=== PATIENT | female | born 1950 | race Caucasian/White ===

== ENCOUNTER → 2016-04-17 | Outpatient (CLI) | payer MEDICARE, BC ==
[2016-04-17 11:39] LABS: CHLORIDE,CL 109 mmol/L (98-110); SODIUM,NA 141 mmol/L (136-146)
== END | disposition home or self-care (01) ==
LOC: MW.CHIM 11:04
PROVIDERS: ATTEND Internal Medicine
DX: R42 Dizziness and giddiness (principal); F32.9 Major depressive disorder, single episode, unspecified; M85.80 Other specified disorders of bone density and structure, unspecified site; M19.049 Primary osteoarthritis, unspecified hand; E66.9 Obesity, unspecified
CPT/HCPCS: 36415; 80053; 85025; 99214

== ENCOUNTER 2017-03-23 17:05 | Observation (INO) | payer MEDICARE, BC ==
[2017-03-23] MEDS ORDERED: Sodium Chloride 0.9% 10 ML Syringe FLUSH PRN ×2 (17:06→19:34)
[2017-03-23] MEDS ORDERED: Sodium Chloride 0.9% 2.5 ML Syringe FLUSH PRN ×2 (17:06→19:34)
[2017-03-23] MEDS ORDERED: Aspirin 81 MG Tab.Chew PO ONE (17:24)
--- NOTE | 2017-03-23 17:48 | EDM.PDOC ---
ED HPI GENERAL MEDICAL PROBLEM - General Chief Complaint: Neuro Symptoms/Deficits Stated Complaint: CONFUSION Time Seen by Provider: 03/23/17 17:08 Source of Information: Reports: Patient History Limitations: Reports: No Limitations - History of Present Illness INITIAL COMMENTS - FREE TEXT/NARRATIVE: History of present illness: []Patient was last seen normal at 2:45 this afternoon. Her son returned from an errand and when he returned she was speaking and very confused about ice cream. Her son noted that this is very abnormal for her. Patient also noted that after driving her here walking from the car to the ER she was not moving her left side very much. Patient does have a history of low blood pressure but has never had a stroke in the past. 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 She was unable to answer the question, what is your name? On return from CT patient was speaking very clearly answering some questions with more clarity however still confused about the date and place. Review of systems: As per history of present illness and below otherwise all systems reviewed and negative. Past medical history: As per history of present illness and as reviewed below otherwise noncontributory. Surgical history: As per history of present illness and as reviewed below otherwise noncontributory. Social history: No reported history of drug or alcohol abuse. Family history: As per history of present illness and as reviewed below otherwise noncontributory. Physical exam: General: Well developed, well nourished in NAD HEENT: Atraumatic, normocephalic, pupils reactive, negative for conjunctival pallor or scleral icterus, mucous membranes moist, throat clear, neck supple, nontender, trachea midline. Lungs: Clear to auscultation, breath sounds equal bilaterally, chest nontender. Heart: S1S2, regular, negative for clicks, rubs, or JVD. Abdomen: Soft, nondistended, nontender. Negative for masses or hepatosplenomegaly. Negative for costovertebral tenderness. Pelvis: Stable nontender. Genitourinary: Deferred. Rectal: Deferred. Extremities: Atraumatic, negative for cords or calf pain. Neurovascular unremarkable. Neuro: Awake, alert, oriented. Cranial nerves II through XII unremarkable. Cerebellum unremarkable. Motor and sensory unremarkable throughout. Exam nonfocal. Diagnostics: []CT head negative, Therapeutics: []Aspirin given Impression: []CVA Plan: []Admit for further workup Definitive disposition and diagnosis as appropriate pending reevaluation and review of above. - Related Data Allergies Allergy/AdvReac Type Severity Reaction Status Date / Time No Known Allergies Allergy Verified 11/25/13 08:44 Home Meds: Home Meds DULoxetine [Cymbalta] 30 mg PO DAILY 03/23/17 [History] Omeprazole 20 mg PO DAILY 03/23/17 [History] ED ROS GENERAL - Review of Systems Review Of Systems: See Below (The history of present illness) ED EXAM, NEURO - Physical Exam Exam: See Below (See history of present illness) Course - Vital Signs Last Recorded V/S: Last Vital Signs Temp 97.7 F 03/23/17 17:46 Pulse 101 H 03/23/17 18:21 Resp 18 03/23/17 18:21 BP 148/74 H 03/23/17 18:21 Pulse Ox 91 L 03/23/17 18:21 - Orders/Labs/Meds Orders: Active Orders 24 hr Category Date Time Status Assess Neurological Status [RC] ASDIRECTED Care 03/23/17 17:06 Active Bedrest [RC] ASDIRECTED Care 03/23/17 17:06 Active Blood Glucose Check, Bedside [RC] STAT Care 03/23/17 17:06 Active Cardiac Monitoring [RC] . DIRECTED Care 03/23/17 17:06 Active EKG Documentation Completion [RC] STAT Care 03/23/17 17:06 Active Height and Weight [RC] UPON Care 03/23/17 17:06 Active Initiate Acute Stroke Protocol [RC] STAT Care 03/23/17 17:06 Active NIH Stroke Scale [RC] ASDIRECTED Care 03/23/17 17:06 Active Nursing Bedside Swallow Screen [RC] ASDIRECTED Care 03/23/17 17:06 Active Oxygen Therapy [RC] ASDIRECTED Care 03/23/17 17:06 Active Stroke Education, General [RC] Click to Edit Care 03/23/17 17:06 Active Vital Signs [RC] Q15M Care 03/23/17 17:06 Active Head wo Cont [CT] Stat Exams 03/23/17 17:06 Taken Sodium Chloride 0.9% [Saline Flush] Med 03/23/17 17:06 Active 10 ml FLUSH ASDIRECTED PRN Sodium Chloride 0.9% [Saline Flush] Med 03/23/17 17:06 Active 2.5 ml FLUSH ASDIRECTED PRN Peripheral IV Insertion Adult [OM.PC] Stat Ot 03/23/17 17:06 Ordered Peripheral IV Insertion Adult [OM.PC] Stat Ot 03/23/17 17:06 Ordered Medication Orders Sodium Chloride (Saline Flush) 10 ml FLUSH ASDIRECTED PRN PRN Reason: Keep Vein Open Sodium Chloride (Saline Flush) 2.5 ml FLUSH ASDIRECTED PRN PRN Reason: Keep Vein Open Labs: Laboratory Tests 03/23/17 03/23/17 03/23/17 Range/Units 17:20 17:20 17:20 WBC 9.15 (4.0-11.0) K/uL RBC 4.46 (4.30-5.90) M/uL Hgb 13.4 (12.0-16.0) g/dL Hct 39.8 (36.0-46.0) % MCV 89.2 (80.0-98.0) fL MCH 30.0 (27.0-32.0) pg MCHC 33.7 (31.0-37.0) g/dL RDW Std Deviation 45.1 (28.0-62.0) fl RDW Coeff of Uzma 14 (11.0-15.0) % Plt Count 219 (150-400) K/uL MPV 10.10 (7.40-12.00) fL Neut % (Auto) 59.9 (48.0-80.0) % Lymph % (Auto) 32.6 (16.0-40.0) % [place] % (Auto) 7.1 (0.0-15.0) % Eos % (Auto) 0.2 (0.0-7.0) % Baso % (Auto) 0.2 (0.0-1.5) % Neut # (Auto) 5.5 (1.4-5.7) K/uL Lymph # (Auto) 3.0 H (0.6-2.4) K/uL [place] # (Auto) 0.7 (0.0-0.8) K/uL Eos # (Auto) 0.0 (0.0-0.7) K/uL Baso # (Auto) 0.0 (0.0-0.1) K/uL Nucleated RBC % 0.0 /100WBC Nucleated RBCs # 0 K/uL INR 0.98 (0.86-1.11) APTT 28.5 (18.6-31.3) SEC Sodium 141 (136-146) mmol/L Potassium 3.9 (3.5-5.1) mmol/L Chloride 108 (98-110) mmol/L Carbon Dioxide 22 (21-31) mmol/L BUN 13 (6.0-23.0) mg/dL Creatinine 0.8 (0.6-1.5) mg/dL Est Cr Clr Drug Dosing TNP Estimated GFR (MDRD) > 60.0 ml/min Glucose 107 (60-110) mg/dL Calcium 9.3 (8.8-10.8) mg/dL Total Bilirubin 0.9 (0.1-1.5) mg/dL AST 36 (5-40) IU/L ALT 57 H (8-54) IU/L Alkaline Phosphatase 80 (40-150) Troponin I < 0.10 (0.0-0.29) NG/ML Total Protein 7.2 (6.0-8.0) g/dL Albumin 4.1 (3.4-4.8) g/dL Globulin 3.1 (2.0-3.5) g/dL Albumin/Globulin Ratio 1.3 (1.3-2.8) TSH 3rd Generation 1.78 (0.47-5.0) uIU/mL Meds: Medications Generic Name Dose Route Start Last Admin Trade Name Freq PRN Reason Stop Dose Admin Sodium Chloride 10 ml 03/23/17 17:06 Saline Flush FLUSH ASDIRECTED PRN Keep Vein Open Sodium Chloride 2.5 ml 03/23/17 17:06 Saline Flush FLUSH ASDIRECTED PRN Keep Vein Open Discontinued Medications Generic Name Dose Route Start Last Admin Trade Name Freq PRN Reason Stop Dose Admin Aspirin 324 mg 03/23/17 17:24 03/23/17 17:31 Aspirin PO 03/23/17 17:25 324 mg ONETIME ONE Administration Departure - Departure Time of Disposition: 18:46 Disposition: Admitted As Inpatient 65 Condition: Fair Clinical Impression: CVA (cerebral vascular accident) Qualifiers: Laterality of affected vessel: unspecified - Discharge Information Referrals: Rafi Marshall MD [Primary Care Provider] - Forms: ED Department Discharge - My Orders Last 24 Hours: My Active Orders 03/23/17 17:06 Assess Neurological Status [RC] ASDIRECTED Bedrest [RC] ASDIRECTED Blood Glucose Check, Bedside [RC] STAT Cardiac Monitoring [RC] . DIRECTED EKG Documentation Completion [RC] STAT Height and Weight [RC] UPON Initiate Acute Stroke Protocol [RC] STAT NIH Stroke Scale [RC] ASDIRECTED Nursing Bedside Swallow Screen [RC] ASDIRECTED Oxygen Therapy [RC] ASDIRECTED Stroke Education, General [RC] Click to Edit Vital Signs [RC] Q15M Head wo Cont [CT] Stat Sodium Chloride 0.9% [Saline Flush] 10 ml FLUSH ASDIRECTED PRN Sodium Chloride 0.9% [Saline Flush] 2.5 ml FLUSH ASDIRECTED PRN Peripheral IV Insertion Adult [OM.PC] Stat Peripheral IV Insertion Adult [OM.PC] Stat - Assessment/Plan Last 24 Hours: My Active Orders 03/23/17 17:06 Assess Neurological Status [RC] ASDIRECTED Bedrest [RC] ASDIRECTED Blood Glucose Check, Bedside [RC] STAT Cardiac Monitoring [RC] . DIRECTED EKG Documentation Completion [RC] STAT Height and Weight [RC] UPON Initiate Acute Stroke Protocol [RC] STAT NIH Stroke Scale [RC] ASDIRECTED Nursing Bedside Swallow Screen [RC] ASDIRECTED Oxygen Therapy [RC] ASDIRECTED Stroke Education, General [RC] Click to Edit Vital Signs [RC] Q15M Head wo Cont [CT] Stat Sodium Chloride 0.9% [Saline Flush] 10 ml FLUSH ASDIRECTED PRN Sodium Chloride 0.9% [Saline Flush] 2.5 ml FLUSH ASDIRECTED PRN Peripheral IV Insertion Adult [OM.PC] Stat Peripheral IV Insertion Adult [OM.PC] Stat
[2017-03-23 17:51] LABS: CHLORIDE,CL 108 mmol/L (98-110); SODIUM,NA 141 mmol/L (136-146)
--- NOTE | 2017-03-23 19:24 | PCM.HP ---
H&P History of Present Illness - General Date of Service: 03/23/17 Admit Problem/Dx: Admission Diagnosis/Problem Admission Diagnosis/Problem TIA, Transient ischemic attack Source of Information: Patient, EMS, Family History Limitations: Reports: Altered Mental Status - History of Present Illness Initial Comments - Free Text/Narative: 66-year-old female brought to emergency room by son with chief complaint of altered mental status with past medical history of depression, anxiety, and osteoarthritis. 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 He awoke at around 11 AM in the morning and mother was acting her normal self. At approximately 2;45 PM he left to take his kids to hockey and when returning approximately 2 hours later he found his mother speaking "gibberish". He states that she was saying clear words but they made no sense. This was unusual so he and his brother who came decided to take her to the emergency room. They also note that she did need help getting to the car and appeared to have some left-sided weakness but they were not clear secondary to her osteoarthritis. They reported that she has a history of low blood pressure but no significant cardiopulmonary disease. She does have parents who both had myocardial infarctions. 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 On reexamination after CT scan the facial droop had resolved. In emergency department she was unable to answer what her name was as per ER. On questioning the patient she is disoriented to time and recent events. She is oriented to place and person. She is speaking clearly verbally but when asked if she is having problems finding words she shakes her head and says yes. On examination cranial nerves 2 through 12 are intact and strength is equal bilaterally. She does have problems following commands. She does seem to have some left visual field deficits but her son states that she cannot see well without her glasses which are not available. Sons state that she was not having any chest pain, headache, palpitations, shortness of breath, or witnessed syncopal episodes. In the emergency department CBC, CMP, troponin, TSH were unremarkable. CT of the head showed no acute intracranial disease. She was given 324 mg by mouth aspirin and ECG showed sinus tachycardia with a left posterior fascicular block and borderline QT interval prolongation. No signs acute ischemia. Patient will be admitted for altered mental status/TIA. Onset of Symptoms: Reports: Today - Related Data Allergies/Adverse Reactions: Allergies Allergy/AdvReac Type Severity Reaction Status Date / Time No Known Allergies Allergy Verified 11/25/13 08:44 Home Medications: Home Meds DULoxetine [Cymbalta] 30 mg PO DAILY 03/23/17 [History] Omeprazole 20 mg PO DAILY 03/23/17 [History] Past Medical History Other HEENT History: unable to assess as pt confused, family unable to give information Other Cardiovascular History: patient confused, family states none as far as they know Other Respiratory History: pt confused, family states done Other Gastrointestinal History: pt confused, Other Genitourinary History: unknown, pt confused BOX ICER History: Reports: , Other (See Below) Other OB/BYN History: hysterectomy Other Musculoskeletal History: confused Other Neuro History: unknown Psychiatric History: Reports: Other (See Below) Other Psychiatric History: takes cymbalta, unsure why Other Endocrine/Metabolic History: unknown Other Hematologic History: unknown Other Immunologic History: family states no Other Oncologic History: unknown Other Dermatologic History: unknown - Infectious Disease History Other Infectious Disease History: unknown Social & Family History - Family History Family Medical History: Unobtainable - Tobacco Use Smoking Status *Q: Never Smoker Second Hand Smoke Exposure: No - Caffeine Use Caffeine Use: Reports: Coffee - Recreational Drug Use Recreational Drug Use: No H&P Review of Systems - Review of Systems: Review Of Systems: See Below General: Reports: Weakness. Denies: Fever, Chills, Malaise HEENT: Denies: Headaches, Sore Throat Pulmonary: Denies: Shortness of Breath, Pleuritic Chest Pain, Cough Cardiovascular: Denies: Chest Pain Gastrointestinal: Denies: Abdominal Pain, Diarrhea, Nausea, Vomiting Genitourinary: Denies: Dysuria Musculoskeletal: Denies: Neck Pain, Leg Pain Skin: Denies: Cyanosis Psychiatric: Reports: Confusion. Denies: Hallucinations Neurological: Reports: Confusion, Trouble Speaking, Difficulty Walking, Gait Disturbance. Denies: Dizziness, Headache, Numbness, Paresthesia, Seizure, Syncope, Tingling, Tremors, Weakness, Change in Speech Hematologic/Lymphatic: Denies: Anemia Exam - Exam Exam: See Below - Vital Signs Vital Signs: Last Vital Signs Temp 97.7 F 03/23/17 17:46 Pulse 98 03/23/17 19:07 Resp 18 03/23/17 19:07 BP 134/69 03/23/17 19:07 Pulse Ox 94 L 03/23/17 19:07 Weight: 86.183 kg - Exam Quality Assessment: DVT Prophylaxis General: Alert, Cooperative HEENT: Conjunctiva Clear, EACs Clear, EOMI, Hearing Intact, Mucosa Moist & [place] , Nares Patent, Normal Nasal Septum, Posterior Pharynx Clear, PERRLA Neck: Supple, Trachea Midline, 2 Lungs: Clear to Auscultation, Normal Respiratory Effort Cardiovascular: Regular Rate, Regular Rhythm, Normal S1, Normal S2 GI/Abdominal Exam: Normal Bowel Sounds, Soft, Non-Tender, No Organomegaly, No Distention Back Exam: Normal Inspection, Full Range of Motion, NT Extremities: Normal Inspection, Normal Range of Motion, Non-Tender, No Pedal Edema, Normal Capillary Refill. No: Jr's Sign Peripheral Pulses: 2+: Radial (L), Radial (R), Posterior Tibial (L), Posterior Tibial (R), Dorsalis Pedis (L), Dorsalis Pedis (R) Skin: Warm, Dry, Intact Neurological: Cranial Nerves Intact, Reflexes Equal Bilateral, Strength Equal Bilateral, Normal Tone, Sensation Intact, Babinski. No: Focal Deficit Neuro Extensive - Mental Status: Alert, Normal Mood/Affect, Disorientation to Place, Disorientation to Time, Memory Loss-Recent Events, Slow Response to Commands. No: Disorientation to Person, Nl Response to Commands Neuro Extensive - Motor, Sensory, Reflexes: CN II-XII Intact, Normal Gait, Normal Reflexes, Expressive Aphasia. No: Tongue Deviation (L), Tongue Deviation (R), Facial palsy (L), Facial Palsy (R), Facial Palsy w Forehead, Facial Palsy wo Forehead, Hemeplagia (R), Hemeplagia (L), Pronator Drift (R), Pronator Drift (L) Psychiatric: Alert, Normal Affect, Normal Mood - Patient Data Lab Results Last 24 hrs: Laboratory Results - last 24 hr 03/23/17 03/23/17 03/23/17 Range/Units 17:20 17:20 17:20 WBC 9.15 (4.0-11.0) K/uL RBC 4.46 (4.30-5.90) M/uL Hgb 13.4 (12.0-16.0) g/dL Hct 39.8 (36.0-46.0) % MCV 89.2 (80.0-98.0) fL MCH 30.0 (27.0-32.0) pg MCHC 33.7 (31.0-37.0) g/dL RDW Std Deviation 45.1 (28.0-62.0) fl RDW Coeff of Uzma 14 (11.0-15.0) % Plt Count 219 (150-400) K/uL MPV 10.10 (7.40-12.00) fL Neut % (Auto) 59.9 (48.0-80.0) % Lymph % (Auto) 32.6 (16.0-40.0) % [place] % (Auto) 7.1 (0.0-15.0) % Eos % (Auto) 0.2 (0.0-7.0) % Baso % (Auto) 0.2 (0.0-1.5) % Neut # (Auto) 5.5 (1.4-5.7) K/uL Lymph # (Auto) 3.0 H (0.6-2.4) K/uL [place] # (Auto) 0.7 (0.0-0.8) K/uL Eos # (Auto) 0.0 (0.0-0.7) K/uL Baso # (Auto) 0.0 (0.0-0.1) K/uL Nucleated RBC % 0.0 /100WBC Nucleated RBCs # 0 K/uL INR 0.98 (0.86-1.11) APTT 28.5 (18.6-31.3) SEC Sodium 141 (136-146) mmol/L Potassium 3.9 (3.5-5.1) mmol/L Chloride 108 (98-110) mmol/L Carbon Dioxide 22 (21-31) mmol/L BUN 13 (6.0-23.0) mg/dL Creatinine 0.8 (0.6-1.5) mg/dL Est Cr Clr Drug Dosing TNP Estimated GFR (MDRD) > 60.0 ml/min Glucose 107 (60-110) mg/dL Calcium 9.3 (8.8-10.8) mg/dL Total Bilirubin 0.9 (0.1-1.5) mg/dL AST 36 (5-40) IU/L ALT 57 H (8-54) IU/L Alkaline Phosphatase 80 (40-150) Troponin I < 0.10 (0.0-0.29) NG/ML Total Protein 7.2 (6.0-8.0) g/dL Albumin 4.1 (3.4-4.8) g/dL Globulin 3.1 (2.0-3.5) g/dL Albumin/Globulin Ratio 1.3 (1.3-2.8) TSH 3rd Generation 1.78 (0.47-5.0) uIU/mL Result Diagrams: 03/23/17 17:20 03/23/17 17:20 *Q Meaningful Use (ADM) - VTE *Q VTE Criteria *Q: - Stroke *Q Stroke Criteria *Q: - AMI *Q AMI Criteria *Q: - Problem List (1) Altered mental status SNOMED Code(s): 767508332 ICD Code: R41.82 - ALTERED MENTAL STATUS, UNSPECIFIED Status: Acute Current Visit: Yes (2) TIA (transient ischemic attack) SNOMED Code(s): 690765532 ICD Code: G45.9 - TRANSIENT CEREBRAL ISCHEMIC ATTACK, UNSPECIFIED Status: Acute Current Visit: Yes Problem List Initiated/Reviewed/Updated: Yes Orders Last 24hrs: Active Orders 24 hr Category Date Time Status Patient Status [ADT] Stat ADT 03/23/17 19:13 Active Assess Neurological Status [RC] ASDIRECTED Care 03/23/17 17:06 Active Bedrest [RC] ASDIRECTED Care 03/23/17 17:06 Active Blood Glucose Check, Bedside [RC] STAT Care 03/23/17 17:06 Active Cardiac Monitoring [RC] . DIRECTED Care 03/23/17 17:06 Active EKG Documentation Completion [RC] STAT Care 03/23/17 17:06 Active Height and Weight [RC] UPON Care 03/23/17 17:06 Active Initiate Acute Stroke Protocol [RC] STAT Care 03/23/17 17:06 Active NIH Stroke Scale [RC] ASDIRECTED Care 03/23/17 17:06 Active Nursing Bedside Swallow Screen [RC] ASDIRECTED Care 03/23/17 17:06 Active Oxygen Therapy [RC] ASDIRECTED Care 03/23/17 17:06 Active Stroke Education, General [RC] Click to Edit Care 03/23/17 17:06 Active Vital Signs [RC] Q15M Care 03/23/17 17:06 Active Head wo Cont [CT] Stat Exams 03/23/17 17:06 Taken Sodium Chloride 0.9% [Saline Flush] Med 03/23/17 17:06 Active 10 ml FLUSH ASDIRECTED PRN Sodium Chloride 0.9% [Saline Flush] Med 03/23/17 17:06 Active 2.5 ml FLUSH ASDIRECTED PRN Peripheral IV Insertion Adult [OM.PC] Stat Oth 03/23/17 17:06 Ordered Peripheral IV Insertion Adult [OM.PC] Stat Oth 03/23/17 17:06 Ordered Medication Orders Sodium Chloride (Saline Flush) 10 ml FLUSH ASDIRECTED PRN PRN Reason: Keep Vein Open Sodium Chloride (Saline Flush) 2.5 ml FLUSH ASDIRECTED PRN PRN Reason: Keep Vein Open Assessment/Plan Comment:: 66 yo female admitted 03/23/17 for altered mental status/TIA with pmh of anxiety, depression, osteoarthritis, and chronic back pain. Altered Mental Status/TIA: No previous cardiopulmonary disease but strong family history. Will do TIA work-up: MRI brain w/wo contrast, MRA head and neck , echocardiogram, fasting lipid panel and place on telemetry. She did recieve 324mg asprin in ED. Will plan to possible start 81 mg aspirin and plavix after neuro consult tomorrow am. Consult neurology. Borderline qtc: Refrain from using zofran for nausea as may prolong qtc. Dispo: 1-2 days.
[2017-03-23] MEDS ORDERED: Acetaminophen 325 MG Tab PO PRN (19:34)
[2017-03-23] MEDS ORDERED: oxyCODONE 5 MG Tab PO PRN (19:34)
[2017-03-23] MEDS ORDERED: Promethazine 25 MG Tab PO PRN (19:34)
[2017-03-23] MEDS ORDERED: Morphine 10 MG/ML Syringe IVPUSH PRN (19:34)
[2017-03-23] MEDS ORDERED: Clopidogrel 75 MG Tab PO ONE (19:48)
[2017-03-24] MEDS ORDERED: Morphine 2 MG/ML Syringe IVPUSH PRN (07:05)
[2017-03-24 07:10] LABS: CHLORIDE,CL 107 mmol/L (98-110); SODIUM,NA 138 mmol/L (136-146)
[2017-03-24] MEDS ORDERED: Potassium Chloride 20 MEQ Tab.ER PO ONE (08:55)
[2017-03-24] MEDS ORDERED: Clopidogrel 75 MG Tab PO SCH (09:00)
[2017-03-24] MEDS: Gadobenate Dimeglumine 529 MG/ML 20 ML SDV IVPUSH STA ×2 (09:23→12:11)
--- NOTE | 2017-03-24 10:16 | MR ---
EXAMINATION: MR of the head without contrast. TECHNIQUE: Multiplanar and multisequence imaging of the head without intravenous contrast. Diffusion weighted sequences were performed. HISTORY: TIA. FINDINGS: The cerebral hemispheres and deep nuclei are without hemorrhage, mass, edema or atrophy. No evidence for restricted diffusion. There is a small area of susceptibility artifact within the left occipital region, likely representing a tiny cavernous hemangioma. No extraaxial collections or hemorrhage. The ventricular system is of normal size and configuration without hydrocephalus. The brainstem and cerebellum are without hemorrhage, mass, edema, gliosis or atrophy. The carotid and basilar artery flow voids are intact. The otomastoid airspaces are clear. No internal affairs investigator al auditory canal or cerebellopontine angle masses. Normal paranasal sinus thickening. Craniocervical junction is unremarkable without Chiari malformation. IMPRESSION: 1. No acute intracranial abnormality identified.
[2017-03-24] MEDS ORDERED: ALPRAZolam 0.25 MG Tab PO ONE (10:28)
[2017-03-24] MEDS: Heparin Sodium 5,000 Units/ML Vial SUBCUT SCH ×2 (10:40→17:04)
[2017-03-24] MEDS: DULoxetine 30 MG Cap PO SCH (10:40)
[2017-03-24] MEDS: Aspirin 81 MG Tab.Chew PO SCH (10:41)
--- NOTE | 2017-03-24 12:24 | PCM.PN ---
- General Info Date of Service: 03/24/17 Admission Dx/Problem (Free Text): Admission Diagnosis/Problem Admission Diagnosis/Problem TIA, Transient ischemic attack Subjective Update: Continues to have some word finding concerns and some confusion per sons, who are both at the bedside. Dina doesn't talk much, but does attempt and end sentences and forgets what she was saying. Denies pain anywhere. No weakness to either side of her body, no focal deficits noted. No chest pain or SOB. Functional Status: Reports: Pain Controlled, Tolerating Diet, Ambulating, Urinating - Review of Systems General: Reports: No Symptoms. Denies: Fever HEENT: Reports: No Symptoms. Denies: Headaches, Sore Throat, Rhinitis Pulmonary: Reports: No Symptoms. Denies: Shortness of Breath, Cough, Sputum Cardiovascular: Reports: No Symptoms. Denies: Chest Pain, Palpitations, Lightheadedness Gastrointestinal: Reports: No Symptoms. Denies: Abdominal Pain, Nausea, Vomiting Neurological: Reports: Confusion, Trouble Speaking. Denies: Headache, Numbness , Tingling, Tremors, Difficulty Walking, Weakness Psychiatric: Reports: Confusion - Patient Data Vitals - Most Recent: Last Vital Signs Temp 96 F 03/24/17 08:00 Pulse 98 03/24/17 08:00 Resp 16 03/24/17 08:00 BP 109/70 03/24/17 08:00 Pulse Ox 94 L 03/24/17 08:00 Weight - Most Recent: 82.327 kg I&O - Last 24 Hours: Intake & Output 03/23/17 03/24/17 03/24/17 22:59 06:59 14:59 Intake Total 50 Output Total 300 Balance -250 Lab Results Last 24 Hours: Laboratory Results - last 24 hr 03/24/17 03/24/17 Range/Units 05:30 05:30 WBC 7.18 (4.0-11.0) K/uL RBC 4.38 (4.30-5.90) M/uL Hgb 12.9 (12.0-16.0) g/dL Hct 39.2 (36.0-46.0) % MCV 89.5 (80.0-98.0) fL MCH 29.5 (27.0-32.0) pg MCHC 32.9 (31.0-37.0) g/dL RDW Std Deviation 45.3 (28.0-62.0) fl RDW Coeff of Uzma 14 (11.0-15.0) % Plt Count 213 (150-400) K/uL MPV 10.40 (7.40-12.00) fL Neut % (Auto) 51.2 (48.0-80.0) % Lymph % (Auto) 39.8 (16.0-40.0) % [place] % (Auto) 8.5 (0.0-15.0) % Eos % (Auto) 0.4 (0.0-7.0) % Baso % (Auto) 0.1 (0.0-1.5) % Neut # (Auto) 3.7 (1.4-5.7) K/uL Lymph # (Auto) 2.9 H (0.6-2.4) K/uL [place] # (Auto) 0.6 (0.0-0.8) K/uL Eos # (Auto) 0.0 (0.0-0.7) K/uL Baso # (Auto) 0.0 (0.0-0.1) K/uL Nucleated RBC % 0.0 /100WBC Nucleated RBCs # 0 K/uL Sodium 138 (136-146) mmol/L Potassium 3.6 (3.5-5.1) mmol/L Chloride 107 (98-110) mmol/L Carbon Dioxide 23 (21-31) mmol/L BUN 10 (6.0-23.0) mg/dL Creatinine 0.7 (0.6-1.5) mg/dL Est Cr Clr Drug Dosing 64.49 mL/min Estimated GFR (MDRD) > 60.0 ml/min Glucose 108 (60-110) mg/dL Calcium 8.8 (8.8-10.8) mg/dL Magnesium 2.0 (1.5-2.3) mEq/L Triglycerides 108 (10-190) mg/dL Cholesterol 145 (131-240) mg/dL LDL Cholesterol, Calc 98 (60-180) mg/dL VLDL Cholesterol 22 (5-55) mg/dL HDL Cholesterol 25 L (40-80) mg/dL Cholesterol/HDL Ratio 5.8 (3.3-6.0) Med Orders - Current: Current Medications Acetaminophen (Tylenol) 650 mg PO Q4H PRN PRN Reason: Pain (Mild 1-3)/fever Aspirin (Aspirin) 81 mg PO DAILY [facility] Last Admin: 03/24/17 10:41 Dose: 81 mg Duloxetine HCl (Cymbalta) 30 mg PO DAILY [facility] Last Admin: 03/24/17 10:40 Dose: 30 mg Heparin Sodium (Porcine) (Heparin Sodium) 5,000 units SUBCUT Q8H [facility] Last Admin: 03/24/17 10:40 Dose: 5,000 units Morphine Sulfate (Morphine) 2 mg IVPUSH Q2H PRN PRN Reason: Pain (severe 7-10) Oxycodone HCl (Oxycodone) 5 mg PO Q4H PRN PRN Reason: Pain (moderate 4-6) Promethazine HCl (Phenergan) 25 mg PO Q6H PRN PRN Reason: nausea, able to take PO Sodium Chloride (Saline Flush) 10 ml FLUSH ASDIRECTED PRN PRN Reason: Keep Vein Open Sodium Chloride (Saline Flush) 2.5 ml FLUSH ASDIRECTED PRN PRN Reason: Keep Vein Open Sodium Chloride (Saline Flush) 10 ml FLUSH ASDIRECTED PRN PRN Reason: Keep Vein Open Sodium Chloride (Saline Flush) 2.5 ml FLUSH ASDIRECTED PRN PRN Reason: Keep Vein Open Discontinued Medications Alprazolam (Xanax) 0.25 mg PO ONCALL ONE Stop: 03/24/17 10:29 Last Admin: 03/24/17 12:12 Dose: Not Given Aspirin (Aspirin) 324 mg PO ONETIME ONE Stop: 03/23/17 17:25 Last Admin: 03/23/17 17:31 Dose: 324 mg Clopidogrel Bisulfate (Plavix) 75 mg PO DAILY [facility] Clopidogrel Bisulfate (Plavix) 75 mg PO ONETIME ONE Stop: 03/23/17 19:49 Last Admin: 03/23/17 20:30 Dose: 75 mg Gadobenate Dimeglumine (Multihance) 20 ml IVPUSH ONETIME STA Stop: 03/24/17 09:23 Last Admin: 03/24/17 12:11 Dose: Not Given Morphine Sulfate (Morphine) 2 mg IVPUSH Q2H PRN PRN Reason: Pain (severe 7-10) Stop: 03/24/17 19:36 Potassium Chloride (Klor-Con M20) 40 meq PO ONETIME ONE Stop: 03/24/17 08:56 Last Admin: 03/24/17 10:40 Dose: 40 meq - Exam Quality Assessment: DVT Prophylaxis General: Alert, Cooperative, No Acute Distress. No: Oriented (unable to recall date or time. Knows who she is and where she is. ) Neck: Supple Lungs: Clear to Auscultation, Normal Respiratory Effort Cardiovascular: Regular Rate, Regular Rhythm GI/Abdominal Exam: Normal Bowel Sounds, Soft, Non-Tender, No Organomegaly, No Distention, No Abnormal Bruit, No Mass, Pelvis Stable Back Exam: Normal Inspection, Full Range of Motion Extremities: Normal Inspection, Normal Range of Motion, Non-Tender, No Pedal Edema, Normal Capillary Refill Neurological: No New Focal Deficit, Other (continues to have some confusion or delirium. ) Psy/Mental Status: Alert, Normal Affect, Normal Mood - Problem List & Annotations (1) Altered mental status SNOMED Code(s): 520789942 Code(s): R41.82 - ALTERED MENTAL STATUS, UNSPECIFIED Status: Acute Current Visit: Yes Qualifiers: Altered mental status type: delirium Qualified Code(s): R41.0 - Disorientation, unspecified (2) TIA (transient ischemic attack) SNOMED Code(s): 924155266 Code(s): G45.9 - TRANSIENT CEREBRAL ISCHEMIC ATTACK, UNSPECIFIED Status: Acute Current Visit: Yes Qualifiers: Transient cerebral ischemia type: unspecified Qualified Code(s): G45.9 - Transient cerebral ischemic attack, unspecified (3) Depression SNOMED Code(s): 80228865 Code(s): F32.9 - MAJOR DEPRESSIVE DISORDER, SINGLE EPISODE, UNSPECIFIED Status: Chronic Current Visit: Yes (4) Anxiety SNOMED Code(s): 07340595 Code(s): F41.9 - ANXIETY DISORDER, UNSPECIFIED Status: Chronic Current Visit: Yes (5) GERD (gastroesophageal reflux disease) SNOMED Code(s): 396791063 Code(s): K21.9 - GASTRO-ESOPHAGEAL REFLUX DISEASE WITHOUT ESOPHAGITIS Status: Chronic Current Visit: Yes Qualifiers: Esophagitis presence: without esophagitis Qualified Code(s): K21.9 - Gastro -esophageal reflux disease without esophagitis - Problem List Review Problem List Initiated/Reviewed/Updated: Yes - My Orders Last 24 Hours: My Active Orders 03/24/17 09:00 DULoxetine [Cymbalta] 30 mg PO DAILY 03/24/17 09:03 Ang Head w wo Cont [MR] Routine Ang Neck w wo Cont [MR] Routine 03/24/17 10:28 Ang Head w wo Cont [MR] Routine Ang Neck w wo Cont [MR] Routine 03/24/17 11:32 EEG Awake Drowsy [RC] ROUTINE DRUG SCREEN, URINE [URCHEM] Urgent UA W/MICROSCOPIC [URIN] Routine 03/24/17 11:47 CV Carotid Duplex Comp [US] Routine - Plan Plan:: 66 yo female admitted 03/23/17 for altered mental status/TIA with pmh of anxiety, depression, osteoarthritis, and chronic back pain. 1. Altered Mental Status/TIA: AMS continues today as per sons reports, but is improving. No previous cardiopulmonary disease but strong family history. Possible TIA due to L sided weakness and L facial droop noted prior to arrival by sofy. MRI brain w/wo contrast unremarkable. echocardiogram and Carotid US pending. Choelsterol 145 LDL 98, HDL 25, and Triglycerides 108. Telemetry SR to ST 80-110s, no arrhythmias noted. Continue daily ASA today. I consulted neurology, Dr. Benavides, She reviewed MRI, which she reported brain looks very healthy and suggested not completing MRA. She did recommend, EEG and urine to look for other causes of AMS, delirium. Sons, reports no new medications and no narcotics or recreational drug use. She only takes Cymbalta and Prilosec. Will await UA and EEG. If not back to normal in am, Dr Benavides will visit with patient. 2. Depression/Anxiety: Continue Cymbalta Dispo: 1-2 days.
--- NOTE | 2017-03-24 14:40 | CT ---
EXAM DATE: 03/23/17 PATIENT'S AGE: 66 Patient: JUANA LOPEZ Facility: [place], [place] Site . Site : 1950 Study: CT Head STROKE PROTOCOL [id number] 5:18:38 PM Ordering Physician: Doctor Barno Final Report: HISTORY: Weakness. TECHNIQUE: Noncontrast head CT. COMPARISON: No prior. FINDINGS: There is no acute intracranial hemorrhage or acute ischemic infarct. No mass effect or midline shift. No hydrocephalus. No extra-axial collection or hematoma. No acute loss of hooks-white differentiation. Mastoid air cells are clear. Paranasal sinuses are clear. No skull fracture. IMPRESSION: No acute intracranial disease. Dictated by Bashir Hassan MD @ 03/23/2017 5:23:48 PM Dictated by: Bashir Hassan MD @ 03/23/2017 17:23:56 (Electronic Signature) Report Signed by Proxy. CHAUNCEY
[2017-03-25] MEDS: Heparin Sodium 5,000 Units/ML Vial SUBCUT SCH ×2 (00:16→08:19)
[2017-03-25 05:59] LABS: CHLORIDE,CL 107 mmol/L (98-110); SODIUM,NA 141 mmol/L (136-146)
[2017-03-25] MEDS: Aspirin 81 MG Tab.Chew PO SCH (08:19)
[2017-03-25] MEDS: DULoxetine 30 MG Cap PO SCH (08:19)
--- NOTE | 2017-03-25 09:37 | PCM.PN ---
- General Info Date of Service: 03/25/17 Admission Dx/Problem (Free Text): Admission Diagnosis/Problem Admission Diagnosis/Problem TIA, Transient ischemic attack Subjective Update: Sitting on edge of bed visiting with son at bedside. Reports she is doing well. No chest pain or SOB. having some R posterior neck pain, but doesn't hurt with movement. Son reports this was her largest complaint when he found her at home acting off. Functional Status: Reports: Tolerating Diet, Ambulating, Urinating - Review of Systems General: Reports: Weakness (generalized weakness). Denies: Fever, Fatigue Pulmonary: Reports: No Symptoms. Denies: Shortness of Breath, Cough, Sputum Cardiovascular: Reports: No Symptoms. Denies: Chest Pain, Palpitations, Edema Gastrointestinal: Reports: No Symptoms. Denies: Abdominal Pain, Nausea, Vomiting Genitourinary: Reports: No Symptoms. Denies: Dysuria, Frequency, Burning Musculoskeletal: Reports: Neck Pain (R posterior neck, ) Neurological: Reports: Confusion Psychiatric: Reports: No Symptoms - Patient Data Vitals - Most Recent: Last Vital Signs Temp 98.7 F 03/25/17 04:00 Pulse 71 03/25/17 04:00 Resp 16 03/25/17 04:00 BP 104/57 L 03/25/17 04:00 Pulse Ox 93 L 03/25/17 04:00 Weight - Most Recent: 82.327 kg I&O - Last 24 Hours: Intake & Output 03/24/17 03/25/17 03/25/17 22:59 06:59 14:59 Intake Total 236 100 Output Total 400 500 Balance -164 -400 Lab Results Last 24 Hours: Laboratory Results - last 24 hr 03/24/17 03/24/17 03/25/17 Range/Units 14:48 14:48 05:08 WBC 7.90 (4.0-11.0) K/uL RBC 4.62 (4.30-5.90) M/uL Hgb 13.8 (12.0-16.0) g/dL Hct 41.7 (36.0-46.0) % MCV 90.3 (80.0-98.0) fL MCH 29.9 (27.0-32.0) pg MCHC 33.1 (31.0-37.0) g/dL RDW Std Deviation 46.0 (28.0-62.0) fl RDW Coeff of Uzma 14 (11.0-15.0) % Plt Count 214 (150-400) K/uL MPV 10.30 (7.40-12.00) fL Neut % (Auto) 45.9 L (48.0-80.0) % Lymph % (Auto) 44.2 H (16.0-40.0) % [place] % (Auto) 8.9 (0.0-15.0) % Eos % (Auto) 0.9 (0.0-7.0) % Baso % (Auto) 0.1 (0.0-1.5) % Neut # (Auto) 3.6 (1.4-5.7) K/uL Lymph # (Auto) 3.5 H (0.6-2.4) K/uL [place] # (Auto) 0.7 (0.0-0.8) K/uL Eos # (Auto) 0.1 (0.0-0.7) K/uL Baso # (Auto) 0.0 (0.0-0.1) K/uL Nucleated RBC % 0.0 /100WBC Nucleated RBCs # 0 K/uL Sodium (136-146) mmol/L Potassium (3.5-5.1) mmol/L Chloride (98-110) mmol/L Carbon Dioxide (21-31) mmol/L BUN (6.0-23.0) mg/dL Creatinine (0.6-1.5) mg/dL Est Cr Clr Drug Dosing mL/min Estimated GFR (MDRD) ml/min Glucose (60-110) mg/dL Calcium (8.8-10.8) mg/dL Urine Color YELLOW Urine Appearance SLT CLOUDY Urine pH 6.0 (5.0-8.0) Ur Specific [place] 1.010 (1.001-1.035) Urine Protein NEGATIVE (NEGATIVE) mg/dL Urine Glucose (UA) NEGATIVE (NEGATIVE) mg/dL Urine Ketones NEGATIVE (NEGATIVE) mg/dL Urine Occult Blood TRACE-INTACT (NEGATIVE) Urine Nitrite NEGATIVE (NEGATIVE) Urine Bilirubin NEGATIVE (NEGATIVE) Urine Urobilinogen 1.0 (<2.0) EU/dL Ur Leukocyte Esterase SMALL (NEGATIVE) Urine RBC 0-2 (0-2/HPF) Urine WBC 6-8 (0-5/HPF) Ur Epithelial Cells FEW (NONE-FEW) Urine Bacteria FEW (NEGATIVE) Urine Opiates Screen NEGATIVE (NEGATIVE) Ur Oxycodone Screen NEGATIVE (NEGATIVE) Urine Methadone Screen NEGATIVE (NEGATIVE) Ur Barbiturates Screen NEGATIVE (NEGATIVE) Ur Phencyclidine Scrn NEGATIVE (NEGATIVE) Ur Amphetamine Screen NEGATIVE (NEGATIVE) U Methamphetamines Scrn NEGATIVE (NEGATIVE) U Benzodiazepines Scrn NEGATIVE (NEGATIVE) U Cocaine Metab Screen NEGATIVE (NEGATIVE) U Marijuana (THC) Screen NEGATIVE (NEGATIVE) 03/25/17 Range/Units 05:08 WBC (4.0-11.0) K/uL RBC (4.30-5.90) M/uL Hgb (12.0-16.0) g/dL Hct (36.0-46.0) % MCV (80.0-98.0) fL MCH (27.0-32.0) pg MCHC (31.0-37.0) g/dL RDW Std Deviation (28.0-62.0) fl RDW Coeff of Uzma (11.0-15.0) % Plt Count (150-400) K/uL MPV (7.40-12.00) fL Neut % (Auto) (48.0-80.0) % Lymph % (Auto) (16.0-40.0) % [place] % (Auto) (0.0-15.0) % Eos % (Auto) (0.0-7.0) % Baso % (Auto) (0.0-1.5) % Neut # (Auto) (1.4-5.7) K/uL Lymph # (Auto) (0.6-2.4) K/uL [place] # (Auto) (0.0-0.8) K/uL Eos # (Auto) (0.0-0.7) K/uL Baso # (Auto) (0.0-0.1) K/uL Nucleated RBC % /100WBC Nucleated RBCs # K/uL Sodium 141 (136-146) mmol/L Potassium 4.1 (3.5-5.1) mmol/L Chloride 107 (98-110) mmol/L Carbon Dioxide 26 (21-31) mmol/L BUN 12 (6.0-23.0) mg/dL Creatinine 0.9 (0.6-1.5) mg/dL Est Cr Clr Drug Dosing 50.16 mL/min Estimated GFR (MDRD) > 60.0 ml/min Glucose 102 (60-110) mg/dL Calcium 9.3 (8.8-10.8) mg/dL Urine Color Urine Appearance Urine pH (5.0-8.0) Ur Specific [place] (1.001-1.035) Urine Protein (NEGATIVE) mg/dL Urine Glucose (UA) (NEGATIVE) mg/dL Urine Ketones (NEGATIVE) mg/dL Urine Occult Blood (NEGATIVE) Urine Nitrite (NEGATIVE) Urine Bilirubin (NEGATIVE) Urine Urobilinogen (<2.0) EU/dL Ur Leukocyte Esterase (NEGATIVE) Urine RBC (0-2/HPF) Urine WBC (0-5/HPF) Ur Epithelial Cells (NONE-FEW) Urine Bacteria (NEGATIVE) Urine Opiates Screen (NEGATIVE) Ur Oxycodone Screen (NEGATIVE) Urine Methadone Screen (NEGATIVE) Ur Barbiturates Screen (NEGATIVE) Ur Phencyclidine Scrn (NEGATIVE) Ur Amphetamine Screen (NEGATIVE) U Methamphetamines Scrn (NEGATIVE) U Benzodiazepines Scrn (NEGATIVE) U Cocaine Metab Screen (NEGATIVE) U Marijuana (THC) Screen (NEGATIVE) Med Orders - Current: Current Medications Acetaminophen (Tylenol) 650 mg PO Q4H PRN PRN Reason: Pain (Mild 1-3)/fever Aspirin (Aspirin) 81 mg PO DAILY [facility] Last Admin: 03/25/17 08:19 Dose: 81 mg Duloxetine HCl (Cymbalta) 30 mg PO DAILY [facility] Last Admin: 03/25/17 08:19 Dose: 30 mg Heparin Sodium (Porcine) (Heparin Sodium) 5,000 units SUBCUT Q8H [facility] Last Admin: 03/25/17 08:19 Dose: 5,000 units Morphine Sulfate (Morphine) 2 mg IVPUSH Q2H PRN PRN Reason: Pain (severe 7-10) Oxycodone HCl (Oxycodone) 5 mg PO Q4H PRN PRN Reason: Pain (moderate 4-6) Last Admin: 03/24/17 22:08 Dose: 5 mg Promethazine HCl (Phenergan) 25 mg PO Q6H PRN PRN Reason: nausea, able to take PO Sodium Chloride (Saline Flush) 10 ml FLUSH ASDIRECTED PRN PRN Reason: Keep Vein Open Sodium Chloride (Saline Flush) 2.5 ml FLUSH ASDIRECTED PRN PRN Reason: Keep Vein Open Sodium Chloride (Saline Flush) 10 ml FLUSH ASDIRECTED PRN PRN Reason: Keep Vein Open Sodium Chloride (Saline Flush) 2.5 ml FLUSH ASDIRECTED PRN PRN Reason: Keep Vein Open Discontinued Medications Alprazolam (Xanax) 0.25 mg PO ONCALL ONE Stop: 03/24/17 10:29 Last Admin: 03/24/17 12:12 Dose: Not Given Aspirin (Aspirin) 324 mg PO ONETIME ONE Stop: 03/23/17 17:25 Last Admin: 03/23/17 17:31 Dose: 324 mg Clopidogrel Bisulfate (Plavix) 75 mg PO DAILY [facility] Clopidogrel Bisulfate (Plavix) 75 mg PO ONETIME ONE Stop: 03/23/17 19:49 Last Admin: 03/23/17 20:30 Dose: 75 mg Gadobenate Dimeglumine (Multihance) 20 ml IVPUSH ONETIME STA Stop: 03/24/17 09:23 Last Admin: 03/24/17 12:11 Dose: Not Given Morphine Sulfate (Morphine) 2 mg IVPUSH Q2H PRN PRN Reason: Pain (severe 7-10) Stop: 03/24/17 19:36 Potassium Chloride (Klor-Con M20) 40 meq PO ONETIME ONE Stop: 03/24/17 08:56 Last Admin: 03/24/17 10:40 Dose: 40 meq - Exam General: Alert, Cooperative, No Acute Distress. No: Oriented (to person and place, not time.) Neck: Other (Tenderness to R posterior neck, not overlying spine, and only located to R side. No nuchal rigidity and no increased in pain with movement. No radiation of pain and no numbness or tingling to either arms.) Lungs: Clear to Auscultation, Normal Respiratory Effort Cardiovascular: Regular Rate, Regular Rhythm GI/Abdominal Exam: Normal Bowel Sounds, Soft, Non-Tender, No Organomegaly, No Distention, No Abnormal Bruit, No Mass, Pelvis Stable Back Exam: Normal Inspection, Full Range of Motion Extremities: Normal Inspection, Normal Range of Motion, Non-Tender, No Pedal Edema, Normal Capillary Refill Neurological: Normal Speech, Strength Equal Bilateral, Sensation Intact, Other ( speaking more today. Asking if she is able to go home. Still confused as per report from son at bedside. She knows where she is but is unsure of date, knows who is president and knows many people arriving into her room. ) Psy/Mental Status: Alert, Normal Affect, Normal Mood - Problem List & Annotations (1) Altered mental status SNOMED Code(s): 873282435 Code(s): R41.82 - ALTERED MENTAL STATUS, UNSPECIFIED Status: Acute Current Visit: Yes Qualifiers: Altered mental status type: delirium Qualified Code(s): R41.0 - Disorientation, unspecified (2) TIA (transient ischemic attack) SNOMED Code(s): 090261957 Code(s): G45.9 - TRANSIENT CEREBRAL ISCHEMIC ATTACK, UNSPECIFIED Status: Acute Current Visit: Yes Qualifiers: Transient cerebral ischemia type: unspecified Qualified Code(s): G45.9 - Transient cerebral ischemic attack, unspecified (3) Depression SNOMED Code(s): 27641067 Code(s): F32.9 - MAJOR DEPRESSIVE DISORDER, SINGLE EPISODE, UNSPECIFIED Status: Chronic Current Visit: Yes (4) Anxiety SNOMED Code(s): 13515208 Code(s): F41.9 - ANXIETY DISORDER, UNSPECIFIED Status: Chronic Current Visit: Yes (5) GERD (gastroesophageal reflux disease) SNOMED Code(s): 292848014 Code(s): K21.9 - GASTRO-ESOPHAGEAL REFLUX DISEASE WITHOUT ESOPHAGITIS Status: Chronic Current Visit: Yes Qualifiers: Esophagitis presence: without esophagitis Qualified Code(s): K21.9 - Gastro -esophageal reflux disease without esophagitis - Problem List Review Problem List Initiated/Reviewed/Updated: Yes - My Orders Last 24 Hours: My Active Orders 03/24/17 09:00 DULoxetine [Cymbalta] 30 mg PO DAILY 03/24/17 11:32 EEG Awake Drowsy [RC] ROUTINE 03/24/17 11:47 CV Carotid Duplex Comp [US] Routine 03/25/17 09:25 Notify Provider Consults [RC] ASDIRECTED Consult to Physician [CONS] Routine - Plan Plan:: 66 yo female admitted 03/23/17 for altered mental status/TIA with pmh of anxiety, depression, osteoarthritis, and chronic back pain. 1. Altered Mental Status/TIA: AMS continues today as per sons reports, they report little improvement. Patient complained of R neck pain last evening. and son reports this was her main complaint when he found her at home confused. He reports no obvious signs of a fall and no way she could've taken different medications. He reports she has been talking about a lady who passed out in her room but she denies falling or at least can't remember falling. No obvious bruising or abrasions to suspect fall. neck is tender to palpation or R posterior trap and sternocleomastoid muscles, no para spinal tenderness and no tenderness to L. No nuchal rigidity noted. I spoke with Dr. Benavides today, who reviews EEG while on the phone with me, no seizure activity noted, but it appeared slow, suggesting dementia possibly. But this is such an acute state from her normal. She recommends us to order LP, we will order fluid analysis with encephalopathy/autoimmune panel included. Dr. Benavides will be by to see patient around lunchtime. Family and patient updated on her recommendations and her consult being placed. MRI brain w/wo contrast unremarkable. echocardiogram had poor windows, but EF 55-60% and normal ventricular systolic function. and Carotid US pending. Cholesterol 145 LDL 98, HDL 25, and Triglycerides 108. Telemetry remains SR to ST 80-110s, no arrhythmias noted. Continue daily ASA today. UA negative. No medication changes. Will await consult of Dr. Benavides and LP results for further plan. 2. Depression/Anxiety: Continue Cymbalta Dispo: 1-2 days.
--- NOTE | 2017-03-25 16:24 | CR ---
EXAMINATION: Fluoro guided lumbar puncture for CSF analysis. HISTORY: Altered mental status. TECHNIQUE/PROCEDURE: The procedure, risks, and benefits were discussed with the patient. Written informed consent was obta ined. Risks included bleeding, headache, infection, and pain. Under fluoro guidance, the L2-L3 level was marked for lumbar puncture. Under aseptic conditions after written informed consent, a 22-gauge S prott needle was introduced into thecal sac and approximately 15 cc of CSF was withdrawn for analysis . The fluid was clear. The patient tolerated the procedure well. No immediate locations. IMPRESSION: Successful fluoro guided lumbar puncture.
--- NOTE | 2017-03-25 16:28 | PCM.CONS ---
H&P History of Present Illness - General Admit Problem/Dx: Admission Diagnosis/Problem Admission Diagnosis/Problem altered mental status Source of Information: Patient, Family History Limitations: Reports: Altered Mental Status - History of Present Illness Initial Comments - Free Text/Narative: On FridayMarch 23, she was in normal state of health in morning per her sons. She was supposed to meet at a hockey game that afternoon, but she did not show up. When they went to the house to knot picker cloth supplies for fishing, They discovered that she seemed confused. She was not making sense. She spoke in complete sentences with normal words but it did not make sense. She stated that there was dog food scattered in the yard, which was not the case. She said she was "making ice cream from the snow". They told her she needed to the hospital and she tried to leave the house in her underwear and apron. Since she has been in the hospital, she may have had a little improvement, but it seems to wax and wane. Last night she repeatedly states that she wanted to go home. At baseline, she has no memory issues. She lives with her son. She manages finances meticulously and helps her son when he is working (20 days on) takes care of the dogs. She has had neck pain for a few months. Neck Pain Score (Numeric/FACES): 2 - Related Data Allergies/Adverse Reactions: Allergies Allergy/AdvReac Type Severity Reaction Status Date / Time No Known Allergies Allergy Verified 11/25/13 08:44 Home Medications: Home Meds DULoxetine [Cymbalta] 30 mg PO DAILY 03/23/17 [History] Omeprazole 20 mg PO DAILY 03/23/17 [History] Past Medical History HEENT History: Reports: Other (See Below) Other HEENT History: wears eyeglasses Other Cardiovascular History: patient confused, family states none as far as they know Other Respiratory History: pt confused, family states none Other Gastrointestinal History: pt confused, Other Genitourinary History: unknown, pt confused 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 CLERK 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: Reports: , Other (See Below) Other OB/BYN History: hysterectomy Other Musculoskeletal History: none as per family Other Neuro History: unknown as per family Psychiatric History: Reports: Other (See Below) Other Psychiatric History: takes cymbalta, unsure why Other Endocrine/Metabolic History: unknown as per family Other Hematologic History: unknown as per family Other Immunologic History: family states no Other Oncologic History: unknown as per family Other Dermatologic History: unknown as per family - Infectious Disease History Other Infectious Disease History: unknown as per family - Past Surgical History Female Surgical History: Reports: Hysterectomy Other Female Surgeries/Procedures: according to son she had hysterectomy Social & Family History - Family History Family Medical History: Unobtainable - Tobacco Use Smoking Status *Q: Never Smoker Second Hand Smoke Exposure: No - Caffeine Use Caffeine Use: Reports: Coffee - Recreational Drug Use Recreational Drug Use: No H&P Review of Systems - Review of Systems: Review Of Systems: ROS reveals no pertinent complaints other than HPI. Exam - Exam Exam: See Below - Vital Signs Vital Signs: Last Vital Signs Temp 36.4 C 03/25/17 08:00 Pulse 74 03/25/17 08:00 Resp 18 03/25/17 08:00 BP 109/62 03/25/17 08:00 Pulse Ox 94 L 03/25/17 08:00 Orthostatic Blood Pressure [ 122/62 Standing] Orthostatic Blood Pressure [ 121/59 Sitting] Orthostatic Blood Pressure [ 118/62 Supine] Weight: 82.327 kg - Exam Physical Exam Comments:: Constitutional: No acute distress Psychiatric: Mood/Affect: normal/appropriate Neurological: Mental Status: General: Normal activity, good hygiene, appropriate appearance. Level of consciousness: Awake, alert. Registration 3/3. Recall 0/3. Spells world [facility]. When asked to spell it backwards [facility]. Naming 3/3 objects intact. Cranial Nerves: Pupils equally round and reactive to light. Visual [place] full to confrontation. Gaze conjugate, EOMI. Sensation intact and symmetric to light touch. Facial strength is full and symmetric. Palate elevates symmetrically. Normal shrug bilaterally. Tongue protrudes midline Motor: Normal tone in all groups. No drift. Power is 5/5 throughout proximal and distal muscles. Sensation: Sensation is intact to pinprick, vibratory sense and proprioception. Deep tendon reflexes: Normoactive throughout. Plantar responses are flexor bilaterally. Coordination: Finger to nose, heel to persaud and rapid alternating movements are intact. Gait: Normal casual gait. Mildly impaired tandem HEENT: Eyes: non icteric, Mouth: moist mucus membranes Cardiovascular: RRR Respiratory: clear lungs GI: non tender Musculoskeletal: non tender Skin: no visible rash - Patient Data Lab Results Last 24 hrs: Laboratory Results - last 24 hr 03/25/17 03/25/17 03/25/17 Range/Units 05:08 05:08 05:08 WBC 7.90 (4.0-11.0) K/uL RBC 4.62 (4.30-5.90) M/uL Hgb 13.8 (12.0-16.0) g/dL Hct 41.7 (36.0-46.0) % MCV 90.3 (80.0-98.0) fL MCH 29.9 (27.0-32.0) pg MCHC 33.1 (31.0-37.0) g/dL RDW Std Deviation 46.0 (28.0-62.0) fl RDW Coeff of Uzma 14 (11.0-15.0) % Plt Count 214 (150-400) K/uL MPV 10.30 (7.40-12.00) fL Neut % (Auto) 45.9 L (48.0-80.0) % Lymph % (Auto) 44.2 H (16.0-40.0) % [place] % (Auto) 8.9 (0.0-15.0) % Eos % (Auto) 0.9 (0.0-7.0) % Baso % (Auto) 0.1 (0.0-1.5) % Neut # (Auto) 3.6 (1.4-5.7) K/uL Lymph # (Auto) 3.5 H (0.6-2.4) K/uL [place] # (Auto) 0.7 (0.0-0.8) K/uL Eos # (Auto) 0.1 (0.0-0.7) K/uL Baso # (Auto) 0.0 (0.0-0.1) K/uL Nucleated RBC % 0.0 /100WBC Nucleated RBCs # 0 K/uL Sodium 141 (136-146) mmol/L Potassium 4.1 (3.5-5.1) mmol/L Chloride 107 (98-110) mmol/L Carbon Dioxide 26 (21-31) mmol/L BUN 12 (6.0-23.0) mg/dL Creatinine 0.9 (0.6-1.5) mg/dL Est Cr Clr Drug Dosing 50.16 mL/min Estimated GFR (MDRD) > 60.0 ml/min Glucose 102 (60-110) mg/dL Calcium 9.3 (8.8-10.8) mg/dL Vitamin B12 256 (200-1100) PG/ML CSF Appearance CSF Color CSF WBC (0-0.005) K/uL CSF RBC (0.0-0.0) M/uL CSF Mononuclear Cells % CSF Polymorphonuclear % CSF Glucose (50-80) mg/dL CSF Total Protein (15-60) mg/dL 03/25/17 03/25/17 03/25/17 Range/Units 15:10 15:15 15:15 WBC (4.0-11.0) K/uL RBC (4.30-5.90) M/uL Hgb (12.0-16.0) g/dL Hct (36.0-46.0) % MCV (80.0-98.0) fL MCH (27.0-32.0) pg MCHC (31.0-37.0) g/dL RDW Std Deviation (28.0-62.0) fl RDW Coeff of Uzma (11.0-15.0) % Plt Count (150-400) K/uL MPV (7.40-12.00) fL Neut % (Auto) (48.0-80.0) % Lymph % (Auto) (16.0-40.0) % [place] % (Auto) (0.0-15.0) % Eos % (Auto) (0.0-7.0) % Baso % (Auto) (0.0-1.5) % Neut # (Auto) (1.4-5.7) K/uL Lymph # (Auto) (0.6-2.4) K/uL [place] # (Auto) (0.0-0.8) K/uL Eos # (Auto) (0.0-0.7) K/uL Baso # (Auto) (0.0-0.1) K/uL Nucleated RBC % /100WBC Nucleated RBCs # K/uL Sodium (136-146) mmol/L Potassium (3.5-5.1) mmol/L Chloride (98-110) mmol/L Carbon Dioxide (21-31) mmol/L BUN (6.0-23.0) mg/dL Creatinine (0.6-1.5) mg/dL Est Cr Clr Drug Dosing mL/min Estimated GFR (MDRD) ml/min Glucose (60-110) mg/dL Calcium (8.8-10.8) mg/dL Vitamin B12 (200-1100) PG/ML CSF Appearance CLEAR CSF Color COLORLESS CSF WBC 0.005 (0-0.005) K/uL CSF RBC 0.000 (0.0-0.0) M/uL CSF Mononuclear Cells 100.0 % CSF Polymorphonuclear 0.0 % CSF Glucose 61.0 (50-80) mg/dL CSF Total Protein 48 (15-60) mg/dL 03/25/17 Range/Units 15:44 WBC (4.0-11.0) K/uL RBC (4.30-5.90) M/uL Hgb (12.0-16.0) g/dL Hct (36.0-46.0) % MCV (80.0-98.0) fL MCH (27.0-32.0) pg MCHC (31.0-37.0) g/dL RDW Std Deviation (28.0-62.0) fl RDW Coeff of Uzma (11.0-15.0) % Plt Count (150-400) K/uL MPV (7.40-12.00) fL Neut % (Auto) (48.0-80.0) % Lymph % (Auto) (16.0-40.0) % [place] % (Auto) (0.0-15.0) % Eos % (Auto) (0.0-7.0) % Baso % (Auto) (0.0-1.5) % Neut # (Auto) (1.4-5.7) K/uL Lymph # (Auto) (0.6-2.4) K/uL [place] # (Auto) (0.0-0.8) K/uL Eos # (Auto) (0.0-0.7) K/uL Baso # (Auto) (0.0-0.1) K/uL Nucleated RBC % /100WBC Nucleated RBCs # K/uL Sodium (136-146) mmol/L Potassium (3.5-5.1) mmol/L Chloride (98-110) mmol/L Carbon Dioxide (21-31) mmol/L BUN (6.0-23.0) mg/dL Creatinine (0.6-1.5) mg/dL Est Cr Clr Drug Dosing mL/min Estimated GFR (MDRD) ml/min Glucose 104 (60-110) mg/dL Calcium (8.8-10.8) mg/dL Vitamin B12 (200-1100) PG/ML CSF Appearance CSF Color CSF WBC (0-0.005) K/uL CSF RBC (0.0-0.0) M/uL CSF Mononuclear Cells % CSF Polymorphonuclear % CSF Glucose (50-80) mg/dL CSF Total Protein (15-60) mg/dL Result Diagrams: 03/25/17 05:08 03/25/17 05:08 Consult PN Assessment/Plan Procedures: Procedures COMP SCREEN MAMMOGRAM ADD-ON (10/20/14) COMPLETE CBC W/AUTO DIFF WBC (04/17/16) COMPREHEN METABOLIC PANEL (04/17/16) DXA BONE DENSITY AXIAL (09/20/15) LIPID PANEL (10/19/15) OFFICE/OUTPATIENT VISIT EST (04/17/16) OFFICE/OUTPATIENT VISIT EST (04/20/15) OFFICE/OUTPATIENT VISIT EST (10/17/14) PCV13 VACCINE IM (04/24/15) ROUTINE VENIPUNCTURE (04/17/16) THER/PROPH/DIAG INJ SC/IM (10/19/15) ULTRASOUND BREAST LIMITED (04/20/15) URINALYSIS AUTO W/O SCOPE (11/25/13) VIT D 1 25-DIHYDROXY (10/19/15) X-RAY EXAM OF SINUSES (08/03/15) (1) Altered mental status SNOMED Code(s): 774176817 Code(s): R41.82 - ALTERED MENTAL STATUS, UNSPECIFIED Current Visit: Yes Qualifiers: Altered mental status type: delirium Qualified Code(s): R41.0 - Disorientation, unspecified Problem List Initiated/Reviewed/Updated: Yes My Orders Last 24 Hours: Acute Encephalopathy: MRI brain normal. EEG showed diffuse slowing. Basic lab work up, U tox, UA, negative for source. Etiology of abrupt onset altered mental for this previously healthy woman is unclear. Irecommend LP with cell count, diff, protein as well as CSF and serum [place] autoimmune encephalopathy panel and B12 levels. She may need a longer EEG to assess for subclinical seizures if work up unrevealing. We do not have the capacity here. Addendum: CSF protein and cellcounts were normal, so less likely an inflammatory process. B12 was a bit low, so I recommended supplementation.
[2017-03-25] MEDS ORDERED: Cyanocobalamin (Vitamin B12) 1,000 MCG/ML SDV IM ONE (16:30)
[2017-03-26 05:31] LABS: CHLORIDE,CL 107 mmol/L (98-110); SODIUM,NA 141 mmol/L (136-146)
--- NOTE | 2017-03-26 08:50 | US ---
EXAMINATION: Carotid US with hooks scale and duplex imaging. HISTORY: Aphasia FINDINGS: Ultrasound examination of bilateral cervical carotid arteries was performed using hooks scale and dupl ex imaging. There is minimal scattered atheromatous changes within the carotid arteries bilaterally. The right vertebral artery was not able to be identified. These are the peak velocities in cm per second (systole), right and left respectively, by a comma: CCA (common carotid artery) - 63, 82 ICA (internal carotid artery) - 72, 76 ECA (External carotid artery) - 76, 76 ICA/CCA systolic ratio Right - 1.2 Left - 1.3 IMPRESSION: 1. Mild scattered atheromatous changes within the carotid arteries without significantly elevated mayela ocities to suggest clinically significant stenosis. 2. The right vertebral artery is not identified.
[2017-03-26] MEDS: DULoxetine 30 MG Cap PO SCH (09:05)
[2017-03-26] MEDS: Aspirin 81 MG Tab.Chew PO SCH (09:05)
[2017-03-26] MEDS ORDERED: Cyanocobalamin (Vitamin B12) 1,000 MCG/ML SDV IM ONE (11:23)
--- NOTE | 2017-03-26 11:24 | PCM.DCSUM1 ---
Discharge Summary - Hospital Course Brief History: 66-year-old female brought to emergency room by son with chief complaint of altered mental status with past medical history of depression, anxiety, and osteoarthritis. 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 He awoke at around 11 AM in the morning and mother was acting her normal self. At approximately 2;45 PM he left to take his kids to hockey and when returning approximately 2 hours later he found his mother speaking "gibberish". He states that she was saying clear words but they made no sense. This was unusual so he and his brother who came decided to take her to the emergency room. They also note that she did need help getting to the car and appeared to have some left- sided weakness but they were not clear secondary to her osteoarthritis. They reported that she has a history of low blood pressure but no significant cardiopulmonary disease. She does have parents who both had myocardial infarctions. 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 On reexamination after CT scan the facial droop had resolved. In emergency department she was unable to answer what her name was as per ER. On questioning the patient she is disoriented to time and recent events. She is oriented to place and person. She is speaking clearly verbally but when asked if she is having problems finding words she shakes her head and says yes. On examination cranial nerves 2 through 12 are intact and strength is equal bilaterally. She does have problems following commands. She does seem to have some left visual field deficits but her son states that she cannot see well without her glasses which are not available. Sons state that she was not having any chest pain, headache, palpitations, shortness of breath, or witnessed syncopal episodes. In the emergency department CBC, CMP, troponin, TSH were unremarkable. CT of the head showed no acute intracranial disease. She was given 324 mg by mouth aspirin and ECG showed sinus tachycardia with a left posterior fascicular block and borderline QT interval prolongation. No signs acute ischemia. Patient will be admitted for altered mental status/TIA. - Discharge Data Discharge Date: 03/26/17 Discharge Disposition: Home, Self-Care 01 Condition: Good - Discharge Diagnosis/Problem(s) (1) Altered mental status SNOMED Code(s): 581934084 ICD Code: R41.82 - ALTERED MENTAL STATUS, UNSPECIFIED Status: Acute Qualifiers: Altered mental status type: delirium Qualified Code(s): R41.0 - Disorientation, unspecified (2) B12 deficiency SNOMED Code(s): 144583258 ICD Code: E53.8 - DEFICIENCY OF OTHER SPECIFIED B GROUP VITAMINS Status: Acute (3) Depression SNOMED Code(s): 75316957 ICD Code: F32.9 - MAJOR DEPRESSIVE DISORDER, SINGLE EPISODE, UNSPECIFIED Status: Chronic (4) Anxiety SNOMED Code(s): 85853925 ICD Code: F41.9 - ANXIETY DISORDER, UNSPECIFIED Status: Chronic (5) GERD (gastroesophageal reflux disease) SNOMED Code(s): 136497657 ICD Code: K21.9 - GASTRO-ESOPHAGEAL REFLUX DISEASE WITHOUT ESOPHAGITIS Status: Chronic Qualifiers: Esophagitis presence: without esophagitis Qualified Code(s): K21.9 - Gastro -esophageal reflux disease without esophagitis - Patient Summary/Data Consults: Consultations 03/25/17 09:25 Consult to Physician [CONS] Routine - Patient Instructions Diet: Heart Healthy Diet Activity: No Strenuous Activities, Rest and Relax Today Driving: Do Not Drive Showering/Bathing: May Shower Notify Provider of: Fever, Increased Pain, Swelling and Redness, Drainage, Nausea and/or Vomiting Other/Special Instructions: Continue daily B 12 injections , Friday, Friday, Friday and Friday. Then they will change to weekly with Dr Marshall. - Discharge Plan Prescriptions/Med Rec: Aspirin 81 mg PO DAILY #30 tab.chew Cyanocobalamin (Vitamin B-12) [Cyanocobalamin Injection] 1,000 mcg IM DAILY #2 vial Home Medications: Home Meds DULoxetine [Cymbalta] 30 mg PO DAILY 03/23/17 [History] Omeprazole 20 mg PO ACBREAKFAST 03/23/17 [History] Aspirin 81 mg PO DAILY #30 tab.chew 03/26/17 [Rx] Cyanocobalamin (Vitamin B-12) [Cyanocobalamin Injection] 1,000 mcg IM DAILY #2 vial 03/26/17 [Rx] Patient Handouts: Confusion, Cyanocobalamin, Vitamin B12 injection, Aspirin, ASA oral tablets Referrals: [facility] [Outside] Ximena Benavides MD [Physician] - 04/09/17 7:45 am Rafi Marshall MD [Primary Care Provider] - 03/31/17 2:00 pm - Discharge Summary/Plan Comment DC Time >30 min.: No Discharge Summary/Plan Comment: Discharge Diagnoses: AMS, encephalopathy B 12 deficiency Depression Anxiety GERD Martha was admitted with suspected TIA secondary to acute and sudden onset of AMS. Complete work up was scheduled. Carotid US obtained which rvealed mild scattered atheromatous changes with the carotids arteries without significantly elevated velocities to suggest significant stenosis. ECHO revealed LV EF 55-60% with normal ventricular systolic function, otherwise the study had poor windows. Cholesterol 145, LDL 98, HDL 25 and triglycerides 108. Brain MRI, unremarkable. Dr. Benavides consulted due to AMS slow to resolve and some waxing and waning of it. UA was completed, which was negative and B12 was noted to be on the low end of normal, 256. She also recommended LP which was performed , fluid analysis was negative for viral or bacterial menigitis and otherwise was normal. Encephalopathy/autoimmune panel was obtained as well and is pending at discharge. Today she is more alert, still somewhat altered. Sons are at bedside requesting discharge. SHe is alert and oriented x3 today as well previous days she was only to self. B12 IM injections were started last evening. She will be discharged home today with sons. She will continue B 12 injections for a total of 7 days daily, which has been set up in the clinic with Dr. Marshall, then weekly and then ultimately monthly. She will also follow up with Dr. Benavides April [address] Marshall next week. She and her sons are to return to ED or clinic if concerns should arise. - General Info Date of Service: 03/26/17 Admission Dx/Problem (Free Text: Admission Diagnosis/Problem Admission Diagnosis/Problem altered mental status Subjective Update: Feeling better today, definitely more talkative. Is alert to date, time and place. There are moments of confusion that wax and wane still per sons. She denies any pain or chest pain. No headache or SOB. Functional Status: Reports: Pain Controlled, Tolerating Diet, Ambulating, Urinating - Review of Systems General: Reports: No Symptoms. Denies: Fever, Weakness, Fatigue Pulmonary: Reports: No Symptoms. Denies: Shortness of Breath Cardiovascular: Reports: No Symptoms. Denies: Chest Pain Gastrointestinal: Reports: No Symptoms. Denies: Abdominal Pain, Constipation, Nausea, Vomiting Genitourinary: Reports: No Symptoms. Denies: Dysuria, Frequency, Burning, Pain Skin: Reports: No Symptoms. Denies: Cyanosis Neurological: Reports: Confusion (waxes and wanes, but seems improved from yesterday) - Patient Data Vitals - Most Recent: Last Vital Signs Temp 97.0 F 03/26/17 08:00 Pulse 85 03/26/17 08:00 Resp 16 03/26/17 08:00 BP 122/70 03/26/17 08:00 Pulse Ox 93 L 03/26/17 08:00 Orthostatic Blood Pressure [ 122/62 Standing] Orthostatic Blood Pressure [ 121/59 Sitting] Orthostatic Blood Pressure [ 118/62 Supine] Weight - Most Recent: 82.327 kg I&O - Last 24 hours: Intake & Output 03/25/17 03/26/17 03/26/17 22:59 06:59 14:59 Intake Total 360 300 Output Total 650 300 Balance -290 0 Lab Results - Last 24 hrs: Laboratory Results - last 24 hr 03/25/17 03/25/17 03/25/17 Range/Units 05:08 15:10 15:15 WBC (4.0-11.0) K/uL RBC (4.30-5.90) M/uL Hgb (12.0-16.0) g/dL Hct (36.0-46.0) % MCV (80.0-98.0) fL MCH (27.0-32.0) pg MCHC (31.0-37.0) g/dL RDW Std Deviation (28.0-62.0) fl RDW Coeff of Uzma (11.0-15.0) % Plt Count (150-400) K/uL MPV (7.40-12.00) fL Neut % (Auto) (48.0-80.0) % Lymph % (Auto) (16.0-40.0) % [place] % (Auto) (0.0-15.0) % Eos % (Auto) (0.0-7.0) % Baso % (Auto) (0.0-1.5) % Neut # (Auto) (1.4-5.7) K/uL Lymph # (Auto) (0.6-2.4) K/uL [place] # (Auto) (0.0-0.8) K/uL Eos # (Auto) (0.0-0.7) K/uL Baso # (Auto) (0.0-0.1) K/uL Nucleated RBC % /100WBC Nucleated RBCs # K/uL Sodium (136-146) mmol/L Potassium (3.5-5.1) mmol/L Chloride (98-110) mmol/L Carbon Dioxide (21-31) mmol/L BUN (6.0-23.0) mg/dL Creatinine (0.6-1.5) mg/dL Est Cr Clr Drug Dosing mL/min Estimated GFR (MDRD) ml/min Glucose (60-110) mg/dL Calcium (8.8-10.8) mg/dL Vitamin B12 256 (200-1100) PG/ML CSF Appearance CLEAR CSF Color COLORLESS CSF WBC 0.005 (0-0.005) K/uL CSF RBC 0.000 (0.0-0.0) M/uL CSF Mononuclear Cells 100.0 % CSF Polymorphonuclear 0.0 % CSF Glucose (50-80) mg/dL CSF Total Protein 48 (15-60) mg/dL 03/25/17 03/25/17 03/26/17 Range/Units 15:15 15:44 04:46 WBC 8.26 (4.0-11.0) K/uL RBC 4.50 (4.30-5.90) M/uL Hgb 13.3 (12.0-16.0) g/dL Hct 40.0 (36.0-46.0) % MCV 88.9 (80.0-98.0) fL MCH 29.6 (27.0-32.0) pg MCHC 33.3 (31.0-37.0) g/dL RDW Std Deviation 44.5 (28.0-62.0) fl RDW Coeff of Uzma 14 (11.0-15.0) % Plt Count 207 (150-400) K/uL MPV 10.40 (7.40-12.00) fL Neut % (Auto) 52.4 (48.0-80.0) % Lymph % (Auto) 39.2 (16.0-40.0) % [place] % (Auto) 7.6 (0.0-15.0) % Eos % (Auto) 0.6 (0.0-7.0) % Baso % (Auto) 0.2 (0.0-1.5) % Neut # (Auto) 4.3 (1.4-5.7) K/uL Lymph # (Auto) 3.2 H (0.6-2.4) K/uL [place] # (Auto) 0.6 (0.0-0.8) K/uL Eos # (Auto) 0.1 (0.0-0.7) K/uL Baso # (Auto) 0.0 (0.0-0.1) K/uL Nucleated RBC % 0.0 /100WBC Nucleated RBCs # 0 K/uL Sodium (136-146) mmol/L Potassium (3.5-5.1) mmol/L Chloride (98-110) mmol/L Carbon Dioxide (21-31) mmol/L BUN (6.0-23.0) mg/dL Creatinine (0.6-1.5) mg/dL Est Cr Clr Drug Dosing mL/min Estimated GFR (MDRD) ml/min Glucose 104 (60-110) mg/dL Calcium (8.8-10.8) mg/dL Vitamin B12 (200-1100) PG/ML CSF Appearance CSF Color CSF WBC (0-0.005) K/uL CSF RBC (0.0-0.0) M/uL CSF Mononuclear Cells % CSF Polymorphonuclear % CSF Glucose 61.0 (50-80) mg/dL CSF Total Protein (15-60) mg/dL 03/26/17 Range/Units 04:46 WBC (4.0-11.0) K/uL RBC (4.30-5.90) M/uL Hgb (12.0-16.0) g/dL Hct (36.0-46.0) % MCV (80.0-98.0) fL MCH (27.0-32.0) pg MCHC (31.0-37.0) g/dL RDW Std Deviation (28.0-62.0) fl RDW Coeff of Uzma (11.0-15.0) % Plt Count (150-400) K/uL MPV (7.40-12.00) fL Neut % (Auto) (48.0-80.0) % Lymph % (Auto) (16.0-40.0) % [place] % (Auto) (0.0-15.0) % Eos % (Auto) (0.0-7.0) % Baso % (Auto) (0.0-1.5) % Neut # (Auto) (1.4-5.7) K/uL Lymph # (Auto) (0.6-2.4) K/uL [place] # (Auto) (0.0-0.8) K/uL Eos # (Auto) (0.0-0.7) K/uL Baso # (Auto) (0.0-0.1) K/uL Nucleated RBC % /100WBC Nucleated RBCs # K/uL Sodium 141 (136-146) mmol/L Potassium 4.1 (3.5-5.1) mmol/L Chloride 107 (98-110) mmol/L Carbon Dioxide 26 (21-31) mmol/L BUN 13 (6.0-23.0) mg/dL Creatinine 0.8 (0.6-1.5) mg/dL Est Cr Clr Drug Dosing 56.43 mL/min Estimated GFR (MDRD) > 60.0 ml/min Glucose 104 (60-110) mg/dL Calcium 9.4 (8.8-10.8) mg/dL Vitamin B12 (200-1100) PG/ML CSF Appearance CSF Color CSF WBC (0-0.005) K/uL CSF RBC (0.0-0.0) M/uL CSF Mononuclear Cells % CSF Polymorphonuclear % CSF Glucose (50-80) mg/dL CSF Total Protein (15-60) mg/dL [place]ONA Results - Last 24 hrs: Microbiology 03/25/17 15:15 Gram Stain - Final Lumbar Sac Fluid - Spinal Body Fluid Culture - Preliminary NO GROWTH AFTER 1 DAY Med Orders - Current: Current Medications Acetaminophen (Tylenol) 650 mg PO Q4H PRN PRN Reason: Pain (Mild 1-3)/fever Aspirin (Aspirin) 81 mg PO DAILY [facility] Last Admin: 03/26/17 09:05 Dose: 81 mg Duloxetine HCl (Cymbalta) 30 mg PO DAILY [facility] Last Admin: 03/26/17 09:05 Dose: 30 mg Morphine Sulfate (Morphine) 2 mg IVPUSH Q2H PRN PRN Reason: Pain (severe 7-10) Oxycodone HCl (Oxycodone) 5 mg PO Q4H PRN PRN Reason: Pain (moderate 4-6) Last Admin: 03/24/17 22:08 Dose: 5 mg Promethazine HCl (Phenergan) 25 mg PO Q6H PRN PRN Reason: nausea, able to take PO Sodium Chloride (Saline Flush) 10 ml FLUSH ASDIRECTED PRN PRN Reason: Keep Vein Open Sodium Chloride (Saline Flush) 2.5 ml FLUSH ASDIRECTED PRN PRN Reason: Keep Vein Open Sodium Chloride (Saline Flush) 10 ml FLUSH ASDIRECTED PRN PRN Reason: Keep Vein Open Sodium Chloride (Saline Flush) 2.5 ml FLUSH ASDIRECTED PRN PRN Reason: Keep Vein Open Discontinued Medications Alprazolam (Xanax) 0.25 mg PO ONCALL ONE Stop: 03/24/17 10:29 Last Admin: 03/24/17 12:12 Dose: Not Given Aspirin (Aspirin) 324 mg PO ONETIME ONE Stop: 03/23/17 17:25 Last Admin: 03/23/17 17:31 Dose: 324 mg Clopidogrel Bisulfate (Plavix) 75 mg PO DAILY [facility] Clopidogrel Bisulfate (Plavix) 75 mg PO ONETIME ONE Stop: 03/23/17 19:49 Last Admin: 03/23/17 20:30 Dose: 75 mg Cyanocobalamin (Vitamin B12) 1,000 mcg IM 03/25/17@1630 ONE Stop: 03/25/17 16:31 Last Admin: 03/25/17 17:13 Dose: 1,000 mcg Gadobenate Dimeglumine (Multihance) 20 ml IVPUSH ONETIME STA Stop: 03/24/17 09:23 Last Admin: 03/24/17 12:11 Dose: Not Given Heparin Sodium (Porcine) (Heparin Sodium) 5,000 units SUBCUT Q8H [facility] Last Admin: 03/25/17 08:19 Dose: 5,000 units Morphine Sulfate (Morphine) 2 mg IVPUSH Q2H PRN PRN Reason: Pain (severe 7-10) Stop: 03/24/17 19:36 Potassium Chloride (Klor-Con M20) 40 meq PO ONETIME ONE Stop: 03/24/17 08:56 Last Admin: 03/24/17 10:40 Dose: 40 meq - Exam General: Reports: Alert, Oriented, Cooperative, No Acute Distress Lungs: Reports: Clear to Auscultation, Normal Respiratory Effort Cardiovascular: Reports: Regular Rate, Regular Rhythm GI/Abdominal Exam: Normal Bowel Sounds, Soft, Non-Tender, No Organomegaly, No Distention, No Abnormal Bruit, No Mass, Pelvis Stable Skin: Reports: Warm, Dry, Intact Neurological: Reports: Other (intermittent confusion noted and son reports she is a lot better than yesterday but not quite her normal self) Psy/Mental Status: Reports: Alert, Normal Affect, Normal Mood *Q Meaningful Use (DIS) - VTE *Q VTE Criteria *Q: - Stroke *Q Stroke Criteria *Q: - AMI *Q AMI Criteria *Q:
--- NOTE | 2017-03-26 14:21 | ECHO ---
EXAM DATE: 03/23/17 PATIENT'S AGE: 66 The echocardiogram report can be seen in this patient's EMR (Electronic Medical Record) in the Reports section. The report has also been scanned into PACs. CHAUNCEY
== END 2017-03-26 14:10 | disposition home or self-care (01) ==
LOC: MW.ED 17:05 → MW.MS 19:13
PROVIDERS: ADMIT Family Medicine; ATTEND Family Medicine
DX: G93.40 Encephalopathy, unspecified (principal); F32.9 Major depressive disorder, single episode, unspecified; F41.9 Anxiety disorder, unspecified; M19.90 Unspecified osteoarthritis, unspecified site; E53.8 Deficiency of other specified B group vitamins; K21.9 Gastro-esophageal reflux disease without esophagitis; G89.29 Other chronic pain; M54.9 Dorsalgia, unspecified; Z90.710 Acquired absence of both cervix and uterus; Z79.899 Other long term (current) drug therapy; Z79.82 Long term (current) use of aspirin
CPT/HCPCS: 36415; 62270; 70450; 70551; 80048; 80053; 80061; 80305; 81001; 82607; 82945; 82947; 83735; 84157; 84443; 84484; 85025; 85610; 85730; 87070; 87205; 89050; 93005; 93306; 93880; 95816; 96372; 99285; A9270; G0378; J1644; J3420; 88104; 99284; A9577

== ENCOUNTER 2019-01-13 23:10 | Emergency (ER) | payer MEDICARE, BC ==
[2019-01-13] MEDS ORDERED: Morphine 4 MG/ML Syringe IVPUSH ONE (23:21)
[2019-01-13] MEDS ORDERED: Ondansetron 4 MG/2 ML SDV IVPUSH ONE (23:21)
--- NOTE | 2019-01-13 23:21 | EDM.PDOC ---
ED HPI GENERAL MEDICAL PROBLEM - General Stated Complaint: RT ANKLE Time Seen by Provider: 01/13/19 23:18 - History of Present Illness INITIAL COMMENTS - FREE TEXT/NARRATIVE: HISTORY AND PHYSICAL: History of present illness: Patient 68-year-old female presents status post fall she injured her right ankle she presents with obvious deformity of her right ankle she denies other trauma or concern this occurred when she fell down several stairs she denies any head or neck pain or trauma any chest pain dizziness shortness of breath chest or abdominal pain or trauma she is on aspirin she denies any bleeding diathesis or anticoagulant Review of systems: As per history of present illness and below otherwise all systems reviewed and negative. Past medical history: As per history of present illness and as reviewed below otherwise noncontributory. Surgical history: As per history of present illness and as reviewed below otherwise noncontributory. Social history: No reported history of drug or alcohol abuse. Family history: As per history of present illness and as reviewed below otherwise noncontributory. Physical exam: HEENT: Atraumatic, normocephalic, pupils reactive, negative for conjunctival pallor or scleral icterus, mucous membranes moist, throat clear, neck supple, nontender, trachea midline. Lungs: Clear to auscultation, breath sounds equal bilaterally, chest nontender. Heart: S1S2, regular, negative for clicks, rubs, or JVD. Abdomen: Soft, nondistended, nontender. Negative for masses or hepatosplenomegaly. Negative for costovertebral tenderness. Pelvis: Stable nontender. Genitourinary: Deferred. Rectal: Deferred. Extremities: Right ankle swelling tenderness and obvious deformity neurovascular exam is unremarkable. Neuro: Awake, alert, oriented. Cranial nerves II through XII unremarkable. Cerebellum unremarkable. Motor and sensory unremarkable throughout. Exam nonfocal. Diagnostics: X-ray right ankle Therapeutics: saline lock morphine sulfate 4 mg IV Zofran 4 mg IV Patient had reduction of her fracture dislocation of her right ankle neurovascular exam status post is normal postreduction x-ray pending short leg posterior mold was applied Impression: #1 acute right ankle injury fracture/dislocation Definitive disposition and diagnosis as appropriate pending reevaluation and review of above. R ankle Pain Score (Numeric/FACES): 10 - Related Data Allergies Allergy/AdvReac Type Severity Reaction Status Date / Time No Known Allergies Allergy Verified 01/13/19 23:27 Home Meds: Home Meds DULoxetine [Cymbalta] 30 mg PO DAILY 03/23/17 [History] Omeprazole 20 mg PO ACBREAKFAST 03/23/17 [History] Aspirin 81 mg PO DAILY #30 tab.chew 03/26/17 [Rx] Cyanocobalamin (Vitamin B-12) [Cyanocobalamin Injection] 1,000 mcg IM DAILY #2 vial 03/26/17 [Rx] Past Medical History HEENT History: Reports: Other (See Below) Other HEENT History: wears eyeglasses Other Cardiovascular History: patient confused, family states none as far as they know Other Respiratory History: pt confused, family states none Other Gastrointestinal History: pt confused, Other Genitourinary History: unknown, pt confused 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: , Other (See Below) Other GOLD LEAF GILDER History: hysterectomy Other Musculoskeletal History: none as per family Other Neuro History: unknown as per family Psychiatric History: Reports: Other (See Below) Other Psychiatric History: takes cymbalta, unsure why Other Endocrine/Metabolic History: unknown as per family Other Hematologic History: unknown as per family Other Immunologic History: family states no Other Oncologic History: unknown as per family Other Dermatologic History: unknown as per family - Infectious Disease History Other Infectious Disease History: unknown as per family - Past Surgical History Female Surgical History: Reports: Hysterectomy Other Female Surgeries/Procedures: according to son she had hysterectomy Social & Family History - Family History Family Medical History: Unobtainable - Caffeine Use Caffeine Use: Reports: Coffee ED ROS GENERAL - Review of Systems Review Of Systems: ROS reveals no pertinent complaints other than HPI. ED EXAM, GENERAL - Physical Exam Exam: See Below (See dictation) Course - Vital Signs Last Recorded V/S: Last Vital Signs Temp 36.2 C 01/13/19 23:15 Pulse 98 01/13/19 23:34 Resp 18 01/13/19 23:34 BP 122/73 01/13/19 23:34 Pulse Ox 93 L 01/13/19 23:34 - Orders/Labs/Meds Orders: Active Orders 24 hr Category Date Time Status Admission Status [Patient Status] [ADT] Stat ADT 01/13/19 23:36 Active Ankle Min 3V Rt [CR] Stat Exams 01/13/19 23:33 Taken Meds: Medications Discontinued Medications Generic Name Dose Route Start Last Admin Trade Name Rakan PRN Reason Stop Dose Admin Morphine Sulfate 4 mg 01/13/19 23:21 01/13/19 23:32 Morphine IVPUSH 01/13/19 23:22 4 mg ONETIME ONE Administration Ondansetron HCl 4 mg 01/13/19 23:21 01/13/19 23:32 Zofran IVPUSH 01/13/19 23:22 4 mg ONETIME ONE Administration Departure - Departure Time of Disposition: 23:51 Disposition: DC/Tfer to Acute Hospital 02 Condition: Good Clinical Impression: Ankle injury, Fracture dislocation of ankle joint - Discharge Information Referrals: PCP,None [Primary Care Provider] - - My Orders Last 24 Hours: My Active Orders 01/13/19 23:33 Ankle Min 3V Rt [CR] Stat 01/13/19 23:36 Admission Status [Patient Status] [ADT] Stat - Assessment/Plan Last 24 Hours: My Active Orders 01/13/19 23:33 Ankle Min 3V Rt [CR] Stat 01/13/19 23:36 Admission Status [Patient Status] [ADT] Stat
[2019-01-13] MEDS ORDERED: Morphine 2 MG/ML Syringe IVPUSH ONE (23:50)
--- NOTE | 2019-01-14 00:01 | CR ---
HISTORY: Status post fall COMPARISON: None available. FINDINGS: AP, lateral and oblique views of the right ankle were obtained for a total of three views. There is an acute, prominently displaced trimalleolar fracture of the ankle. There is 50 percent lateral and 60 percent posterior displacement of the talus, associated with acute, moderately angulated, comminuted fractures of the distal fibula and posterior distal tibia. No distinct fracture of the medial malleolus is seen. There is no sign of a joint effusion. There is mild diffuse soft tissue swelling of the ankle. There is a small plantar calcaneal spur. IMPRESSION: Acute, prominently displaced trimalleolar fracture-dislocation of the ankle. 50 percent lateral and 60 percent posterior displacement of the talus. Dictated by Ben Pisano MD @ Jan 13 2019 11:55PM Signed by Dr. Ben Pisano @ Jan 13 2019 11:59PM
--- NOTE | 2019-01-14 00:06 | CR ---
Indication: Fall, fracture, postreduction Technique: Three views of the right ankle Comparison: Right ankle three views 01/13/2019 11:21 p.m. Findings/Impression: There has been reduction and casting of ankle fracture dislocation with significantly improved alignment. Surrounding soft tissue edema is noted. Dictated by Kylie Abrams MD @ Jan 14 2019 12:05AM Signed by Dr. Kylie Abrams @ Jan 14 2019 12:05AM
[2019-01-14 00:21] LABS: CARBON DIOXIDE,CO2 25.6 mmol/L (21.0-32.0); POTASSIUM,K 4.3 mmol/L (3.5-5.1)
== END 2019-01-14 00:53 ==
LOC: MW.ED 23:10
DX: S82.851A Displaced trimalleolar fracture of right lower leg, initial encounter for closed fracture (principal); Z79.82 Long term (current) use of aspirin; W10.9XXA Fall (on) (from) unspecified stairs and steps, initial encounter
CPT/HCPCS: 27788; 36415; 73610; 80053; 85025; 85610; 93005; 96374; 96375; 96376; 99284; J2270; J2405; 29515; 99283

== ENCOUNTER 2021-06-10 12:46 | Emergency (ER) | payer MEDICARE, BC ==
[2021-06-10] MEDS ORDERED: Sodium Chloride 0.9% 1,000 ML IV ONE (12:58)
[2021-06-10] MEDS ORDERED: Ondansetron 4 MG/2 ML SDV IVPUSH ONE (12:58)
[2021-06-10] MEDS ORDERED: Morphine 4 MG/ML VIAL IVPUSH ONE (12:58)
[2021-06-10] MEDS ORDERED: Acetaminophen 500 MG Tab PO ONE (13:01)
[2021-06-10 14:14] LABS: CORONAVIRUS COVID-19 NAA NEGATIVE (NEGATIVE); INFLUENZA A NAA NEGATIVE (NEGATIVE); INFLUENZA B NAA NEGATIVE (NEGATIVE)
[2021-06-10 14:32] LABS: BLOOD UREA NITROGEN,BUN 11 mg/dL (7.0-18.0); CARBON DIOXIDE,CO2 24.8 mmol/L (21.0-32.0); CHLORIDE,CL 101 mmol/L (98-107); GLUCOSE RANDOM 108 mg/dL (74-106); LIPASE 116 U/L (73-393); POTASSIUM,K 3.7 mmol/L (3.5-5.1); SODIUM,NA 137 mmol/L (136-145)
[2021-06-10] MEDS ORDERED: Iopamidol 755 MG/ML 500 ML Multipack Bottle IVPUSH ONE (18:35)
== END 2021-06-10 16:26 | disposition home or self-care (01) ==
LOC: MW.ED 12:46
DX: R10.84 Generalized abdominal pain (principal); Z79.82 Long term (current) use of aspirin; Z20.822 Contact with and (suspected) exposure to COVID-19; Z79.899 Other long term (current) drug therapy
CPT/HCPCS: 0240U; 36415; 74177; 80053; 81003; 83605; 83690; 83735; 84484; 85025; 86140; 87040; 96374; 96375; 99284; A9270; J2270; J2405; J7030; Q9967

== ENCOUNTER 2022-12-24 19:35 | Observation (INO) | payer MEDICARE, BC ==
[2022-12-24] MEDS ORDERED: Sodium Chloride 0.9% 10 ML Syringe FLUSH PRN ×2 (20:10→22:53)
[2022-12-24] MEDS ORDERED: Sodium Chloride 0.9% 2.5 ML Syringe FLUSH PRN ×2 (20:10→22:53)
[2022-12-24 20:25] LABS: BASOPHILS ABSOLUTE AUTO 0.02 K/uL (0.00-0.20); BASOPHILS PERCENT AUTO 0.2 % (0.0-1.0); EOSINOPHILS ABSOLUTE AUTO 0.06 K/uL (0.00-0.45); EOSINOPHILS PERCENT AUTO 0.7 % (0.0-6.0); HEMATOCRIT 38.7 % (37.0-47.0); HEMOGLOBIN 13.4 g/dL (12.0-16.0); IMMATURE GRAN ABSOLUTE AUTO 0.02 K/uL (0.00-0.05); IMMATURE GRAN PERCENT AUTO 0.2 % (0.0-0.4); LYMPHOCYTES ABSOLUTE AUTO 3.88 K/uL (1.00-4.80); LYMPHOCYTES PERCENT AUTO 44.5 % (24.0-44.0); MEAN CORPUSCULAR HEMOGLOBIN 30.8 pg (28.0-32.0); MEAN CORPUSCULAR HGB CONC 34.6 g/dL (32.0-36.0); MEAN PLATELET VOLUME 10.1 fL (9.4-12.3); MONOCYTES ABSOLUTE AUTO 0.52 K/uL (0.00-0.80); NEUTROPHILS ABSOLUTE AUTO 4.2 K/uL (1.8-7.7); NEUTROPHILS PERCENT AUTO 48.4 % (41.0-71.0); PLATELET COUNT,PLT 207 K/uL (150-400); RED BLOOD CELL COUNT 4.35 M/uL (4.10-5.30); WHITE BLOOD CELL COUNT,WBC 8.72 K/uL (3.9-11.3)
[2022-12-24] MEDS ORDERED: Iopamidol 755 MG/ML 500 ML Multipack Bottle IVPUSH ONE (20:34)
[2022-12-24 21:02] LABS: A/G RATIO 1.1 (0.9-1.6); ALBUMIN 3.8 g/dL (3.4-5.0); BILIRUBIN TOTAL 0.7 mg/dL (0.2-1.0); CALCIUM 8.8 mg/dL (8.5-10.1); EST CRCL DRUG DOSING (CG) 39.63 mL/min; POTASSIUM,K 3.7 mmol/L (3.5-5.1); PROTEIN TOTAL,TP 7.3 g/dL (6.4-8.2)
[2022-12-24] MEDS ORDERED: Aspirin 81 MG Tab.Chew PO ONE (22:20)
[2022-12-24] MEDS ORDERED: Ondansetron 4 MG/2 ML SDV IVPUSH PRN (22:53)
[2022-12-24] MEDS ORDERED: Acetaminophen 325 MG Tab PO PRN (22:53)
[2022-12-24] MEDS ORDERED: Sodium Chloride 0.9% 20 ML SDV IV PRN (22:53)
[2022-12-24] MEDS ORDERED: Polyethylene Glycol 3350 Powder 17 GM Packet PO PRN (22:53)
[2022-12-24] MEDS ORDERED: Albuterol/Ipratropium 3.0-0.5 MG/3 ML Neb Soln NEB PRN (22:53)
[2022-12-24] MEDS ORDERED: Aspirin 81 MG Tab.Chew PO STA (23:13)
[2022-12-24 23:48] LABS: HEMOGLOBIN A1C 5.7 %
[2022-12-24 23:58] LABS: TSH ULTRASENSITIVE 5.68 uIU/mL (0.36-3.74)
[2022-12-25 00:15] LABS: T4 FREE 0.89 ng/dL (0.76-1.46)
[2022-12-25] MEDS ORDERED: FLU (Fluad Quad) 2023-24(65UP)/MF59C/PF 60 MCG/0.5 ML Syringe IM ONE ×2 (01:30→09:00)
[2022-12-25 06:10] LABS: BASOPHILS ABSOLUTE AUTO 0.02 K/uL (0.00-0.20); BASOPHILS PERCENT AUTO 0.3 % (0.0-1.0); EOSINOPHILS ABSOLUTE AUTO 0.03 K/uL (0.00-0.45); EOSINOPHILS PERCENT AUTO 0.4 % (0.0-6.0); HEMATOCRIT 36.6 % (37.0-47.0); HEMOGLOBIN 12.4 g/dL (12.0-16.0); IMMATURE GRAN ABSOLUTE AUTO 0.02 K/uL (0.00-0.05); IMMATURE GRAN PERCENT AUTO 0.3 % (0.0-0.4); LYMPHOCYTES PERCENT AUTO 45.3 % (24.0-44.0); MEAN CORPUSCULAR HEMOGLOBIN 30.5 pg (28.0-32.0); MEAN CORPUSCULAR HGB CONC 33.9 g/dL (32.0-36.0); MEAN CORPUSCULAR VOLUME 90.1 fL (83.0-99.0); MEAN PLATELET VOLUME 10.5 fL (9.4-12.3); MONOCYTES ABSOLUTE AUTO 0.47 K/uL (0.00-0.80); MONOCYTES PERCENT AUTO 6.3 % (0.0-8.0); NEUTROPHILS ABSOLUTE AUTO 3.6 K/uL (1.8-7.7); NEUTROPHILS PERCENT AUTO 47.4 % (41.0-71.0); PLATELET COUNT,PLT 183 K/uL (150-400); RED BLOOD CELL COUNT 4.06 M/uL (4.10-5.30); WHITE BLOOD CELL COUNT,WBC 7.51 K/uL (3.9-11.3)
[2022-12-25 06:42] LABS: ALBUMIN 3.2 g/dL (3.4-5.0); BILIRUBIN TOTAL 0.5 mg/dL (0.2-1.0); CARBON DIOXIDE,CO2 27.3 mmol/L (21.0-32.0); CREATININE 0.9 mg/dL (0.6-1.0); EST CRCL DRUG DOSING (CG) 44.03 mL/min; MAGNESIUM 2.3 mg/dL (1.8-2.4); POTASSIUM,K 3.7 mmol/L (3.5-5.1); PROTEIN TOTAL,TP 6.4 g/dL (6.4-8.2)
[2022-12-25] MEDS ORDERED: Aspirin 81 MG Tab.Chew PO SCH (09:00)
[2022-12-25] MEDS ORDERED: Gadobenate Dimeglumine 529 MG/ML 20 ML SDV IVPUSH STA (10:44)
[2022-12-25] MEDS ORDERED: LORazepam 2 MG/ML SDV IVPUSH ONE (11:21)
[2022-12-25 14:41] LABS: APPEARANCE,URINE CLEAR; BILIRUBIN,URINE NEGATIVE (NEGATIVE); COLOR,URINE YELLOW; GLUCOSE,URINE NEGATIVE (NEGATIVE); KETONES,URINE NEGATIVE (NEGATIVE); LEUKOCYTE ESTERASE,URINE TRACE (NEGATIVE); NITRITE,URINE NEGATIVE (NEGATIVE); OCCULT BLOOD,URINE NEGATIVE (NEGATIVE); PROTEIN,URINE NEGATIVE (NEGATIVE); UROBILINOGEN,URINE 0.2 EU/dL (<2.0)
[2022-12-25 14:52] LABS: BACTERIA,URINE FEW (NEGATIVE); EPITHELIAL CELLS,URINE FEW (NONE-FEW); RBC,URINE 0-2 (0-2/HPF)
== END 2022-12-25 17:26 | disposition home or self-care (01) ==
LOC: MW.ED 19:35 → MW.MS 22:31
PROVIDERS: ADMIT Family Medicine; ATTEND Family Medicine
DX: I63.019 Cerebral infarction due to thrombosis of unspecified vertebral artery (principal); R42 Dizziness and giddiness; F41.9 Anxiety disorder, unspecified; I10 Essential (primary) hypertension; F32.9 Major depressive disorder, single episode, unspecified; Z79.82 Long term (current) use of aspirin; Z79.899 Other long term (current) drug therapy
CPT/HCPCS: 36415; 70450; 70496; 70498; 70553; 80053; 80061; 81001; 83036; 83690; 83735; 84439; 84443; 84484; 85025; 87086; 93005; 93246; 93306; 96374; 97161; 99285; A9270; A9577; G0378; J2060; Q9967; 93010; 99291

== ENCOUNTER 2023-07-10 10:49 | Day surgery (SDC) | payer MEDICARE, BC ==
[~2023-07-10 10:49] MED LIST: Sodium Chloride 0.9% 10 ML Syringe FLUSH PRN; Sodium Chloride 0.9% 2.5 ML Syringe FLUSH PRN; Sodium Chloride 0.9% 20 ML SDV IV PRN
[2023-07-10] MEDS: Lactated Ringers 1,000 ML IV SCH (11:12)
[2023-07-10] MEDS ORDERED: propofoL 50 ML ONE (11:55)
== END 2023-07-10 12:40 | disposition home or self-care (01) ==
LOC: MW.SDS 10:49
PROVIDERS: ATTEND Surgery
DX: Z12.11 Encounter for screening for malignant neoplasm of colon (principal); D12.2 Benign neoplasm of ascending colon; D12.3 Benign neoplasm of transverse colon; K21.9 Gastro-esophageal reflux disease without esophagitis; I10 Essential (primary) hypertension; F41.9 Anxiety disorder, unspecified; E78.5 Hyperlipidemia, unspecified; Z79.82 Long term (current) use of aspirin; Z79.899 Other long term (current) drug therapy; Z88.0 Allergy status to penicillin
CPT/HCPCS: 45380; 88305; J2704; J7120; 00811; 99100

== ENCOUNTER 2024-10-18 16:33 | Emergency (ER) | payer MEDICARE, BC ==
[2024-10-18] MEDS ORDERED: Sodium Chloride 0.9% 10 ML Syringe FLUSH PRN (18:21)
[2024-10-18] MEDS ORDERED: Sodium Chloride 0.9% 2.5 ML Syringe FLUSH PRN (18:21)
[2024-10-18] MEDS: Ondansetron 4 MG/2 ML SDV IVPUSH ONE (18:32)
[2024-10-18] MEDS: Alum Hydrox/Mag Hydrox/Simeth 15 ML, Lidocaine 2% 5 ML PO ONE (18:32)
[2024-10-18 18:45] LABS: BASOPHILS ABSOLUTE AUTO 0.02 K/uL (0.00-0.20); BASOPHILS PERCENT AUTO 0.2 % (0.0-1.0); EOSINOPHILS ABSOLUTE AUTO 0.06 K/uL (0.00-0.45); EOSINOPHILS PERCENT AUTO 0.6 % (0.0-6.0); IMMATURE GRAN ABSOLUTE AUTO 0.01 K/uL (0.00-0.05); IMMATURE GRAN PERCENT AUTO 0.1 % (0.0-0.4); LYMPHOCYTES ABSOLUTE AUTO 3.72 K/uL (1.00-4.80); LYMPHOCYTES PERCENT AUTO 37.6 % (24.0-44.0); MEAN PLATELET VOLUME 10.3 fL (9.4-12.3); MONOCYTES ABSOLUTE AUTO 0.66 K/uL (0.00-0.80); MONOCYTES PERCENT AUTO 6.7 % (0.0-8.0); NEUTROPHILS ABSOLUTE AUTO 5.42 K/uL (1.80-7.70); NEUTROPHILS PERCENT AUTO 54.8 % (41.0-71.0); NRBC ABSOLUTE 0.00 K/uL (0.00-0.02); NRBC PERCENT 0.0 /100WBC (0.0-0.2); PLATELET COUNT,PLT 213 K/uL (150-400); RED BLOOD CELL COUNT 4.38 M/uL (4.10-5.30); WHITE BLOOD CELL COUNT,WBC 9.89 K/uL (3.9-11.3)
[2024-10-18 19:10] LABS: A/G RATIO 1.1 (0.9-1.6); ALANINE AMINOTRANSFERASE,ALT 37.0 IU/L (14-63); ASPARTATE AMNIOTRANSFERASE,AST 25.0 IU/L (15-37); BILIRUBIN TOTAL 0.9 mg/dL (0.2-1.0); BLOOD UREA NITROGEN,BUN 17.0 mg/dL (7.0-18.0); CARBON DIOXIDE,CO2 27.7 mmol/L (21.0-32.0); CHLORIDE,CL 105.0 mmol/L (98-107); CREATININE 0.9 mg/dL (0.6-1.0); EST CRCL DRUG DOSING (CG) 42.72 mL/min; GLUCOSE RANDOM 100.0 mg/dL (74-106); POTASSIUM,K 4.2 mmol/L (3.5-5.1); PROTEIN TOTAL,TP 7.3 g/dL (6.4-8.2); SODIUM,NA 141.0 mmol/L (136-145)
[2024-10-18 19:11] LABS: ESTIMATED GFR 67.0 mL/min (>60)
[2024-10-18] MEDS: Iopamidol 755 MG/ML 500 ML Multipack Bottle IVPUSH STA (20:00)
[2024-10-18 20:43] LABS: GLUCOSE,URINE NEGATIVE (NEGATIVE); OCCULT BLOOD,URINE TRACE-INTACT (NEGATIVE)
[2024-10-18 20:47] LABS: APPEARANCE,URINE HAZY
[2024-10-18 20:49] LABS: SQUAMOUS EPITHELIAL CELLS,UR FEW
== END 2024-10-18 21:25 | disposition home or self-care (01) ==
LOC: MW.ED 16:33
DX: R10.84 Generalized abdominal pain (principal); E86.0 Dehydration; I10 Essential (primary) hypertension; E78.00 Pure hypercholesterolemia, unspecified; K21.9 Gastro-esophageal reflux disease without esophagitis; M19.90 Unspecified osteoarthritis, unspecified site; Z90.710 Acquired absence of both cervix and uterus; Z88.1 Allergy status to other antibiotic agents; Z88.8 Allergy status to other drugs, medicaments and biological substances; Z79.82 Long term (current) use of aspirin; Z79.899 Other long term (current) drug therapy; Z75.3 Unavailability and inaccessibility of health-care facilities
CPT/HCPCS: 36415; 74177; 80053; 81001; 83690; 83735; 85025; 96361; 96374; 99284; A9270; J2405; J7030; Q9967; 99283